=== PATIENT | female | born 1935 | race Caucasian/White ===

== ENCOUNTER 2019-10-06 09:58 | Emergency (ER) | payer OTHER ==
[~2019-10-06] VITALS: Ht 165.1 cm; Wt 68.0 kg
[2019-10-06 09:58] VITALS: BP_SYST 153
[2019-10-06] MEDS ORDERED: ONDANSETRON 4 MG ODT TAB PO ONE (10:30)
[2019-10-06 11:15] VITALS: BP_SYST 153
== END 2019-10-06 11:15 | disposition home or self-care (01) ==
LOC: SED 09:58
DX: R11.2 Nausea with vomiting, unspecified (principal); E11.9 Type 2 diabetes mellitus without complications
CPT/HCPCS: 81002; 99283; Q0162

== ENCOUNTER 2021-04-11 11:31 | Inpatient (IN) | payer OTHER, SELFPAY ==
[~2021-04-11] VITALS: Ht 165.1 cm; Wt 55.8 kg
[2021-04-11 11:37] VITALS: BP_SYST 166
--- NOTE | 2021-04-11 11:37 | NUR ---
Placed in room 1 . Placed on crayon grader, blood pressure machine and pulse oximeter. To gown for exam. Side rails up. Report given to GISELE DUFFY.
--- NOTE | 2021-04-11 11:44 | NUR ---
Pt c/o falling in the shower at home, did not black out. No obvious deformities or bruising noted. Pt states she only had coffee and crackers in the morning. Pt states no pain at this time. No other complaints at this time.
--- NOTE | 2021-04-11 12:13 | NUR ---
ER at bedside examining patient.
[2021-04-11] MEDS ORDERED: NACL 0.9% 1,000 ML IV ONE (12:30)
[2021-04-11 12:51] LABS: BASOPHILS % (AUTO) 0.3 % (0.0-2.0); EOSINOPHILS # (AUTO) 0.1 K/uL (0.0-0.4); EOSINOPHILS % (AUTO) 0.9 % (0.0-4.0); HEMATOCRIT 36.9 % (36-48); HEMOGLOBIN 12.1 g/dL (12.0-16.0); LYMPHOCYTES # (AUTO) 0.9 K/uL (1.0-5.5); LYMPHOCYTES % (AUTO) 11.2 % (20.5-51.5); MEAN CORPUSCULAR HEMOGLOBIN 29 pg (27-31); MEAN CORPUSCULAR HGB CONC 33 % (32-36); MEAN CORPUSCULAR VOLUME 88 fL (79.0-98.0); MONOCYTES # (AUTO) 0.5 K/uL (0.0-1.0); MONOCYTES % (AUTO) 6.2 % (1.7-9.3); NEUTROPHILS # (AUTO) 6.8 K/uL (1.8-7.7); NEUTROPHILS % (AUTO) 81.4 % (40.0-70.0); PLATELET COUNT (AUTO) 181 K/uL (130-430); RED CELL DISTRIBUTION WIDTH 14.2 % (9.0-15.0); WHITE BLOOD COUNT (AUTO) 8.3 K/uL (4.8-10.8)
[2021-04-11 12:52] LABS: ANION GAP 8 (5-15); CALCIUM 9.2 mg/dL (8.4-11.0); CHLORIDE 100 mmol/L (98-107); CREATININE 1.42 mg/dL (0.55-1.30); GLUCOSE 340 mg/dL (70-99); POTASSIUM 3.8 mmol/L (3.5-5.1); SODIUM SERUM 138 mmol/L (136-145); UREA NITROGEN, BLOOD 18 mg/dL (8-21)
[2021-04-11 12:54] LABS: PROTHROMBIN TIME 10.7 SECS (9.5-12.5)
[2021-04-11 13:02] LABS: ALANINE AMINOTRANSFERASE 18 U/L (12-78); ASPARTATE AMINOTRANSFERASE 14 U/L (10-37); TOTAL BILIRUBIN 0.4 mg/dL (0.0-1.0)
[2021-04-11] MEDS ORDERED: INSULIN REGULAR, HUMAN 10 UNITS/0.1 ML INJ IVP ONE (13:45)
--- NOTE | 2021-04-11 14:00 | NUR ---
Pt states no pain or distress at this time. Adminstered 6 units regular insulin witnessed by 2nd RN
--- NOTE | 2021-04-11 14:21 | NUR ---
[facility]
--- NOTE | 2021-04-11 14:33 | NUR ---
Pt returned to ER 1. Tolerated well.
[2021-04-11] MEDS ORDERED: DEXTROSE 50% JECT 50 ML DISP.SYRIN IVP PRN (15:30)
[2021-04-11] MEDS ORDERED: OMEP20CA15 PO (16:00)
--- NOTE | 2021-04-11 18:10 | NUR ---
Dr. Alf amraal at bedside.
--- NOTE | 2021-04-11 18:27 | NUR ---
Pt up in bed eating dinner. Administered clonidine 0.2 mg PO per MD order for elevated BP.
[2021-04-11] MEDS ORDERED: cloNIDine HCL 0.1 MG TABLET PO ONE (18:30)
[2021-04-11 18:58] LABS: BILIRUBIN,URINE NEGATIVE (NEGATIVE); BLOOD, URINE NEGATIVE (NEGATIVE); CLARITY/URINE CLOUDY (CLEAR); COLOR,URINE YELLOW (YELLOW); GLUCOSE,URINE 3+ (NEGATIVE); KETONES,URINE NEGATIVE (NEGATIVE); LEUKOCYTE ESTERASE ,URINE NEGATIVE (NEGATIVE); NITRITE, URINE NEGATIVE (NEGATIVE); PH,URINE 8.5 (5.0-8.0); PROTEIN URINE 3+ (NEGATIVE); UROBILINOGEN,URINE 0.2 (0.2-1.0)
[2021-04-11] MEDS ORDERED: hydrALAZINE HCL 25 MG TABLET PO ONE (19:00)
--- NOTE | 2021-04-11 19:10 | NUR ---
RECEIVED REPORT FROM DORIAN JAQUEZ
--- NOTE | 2021-04-11 19:17 | NUR ---
PHARMACY BROUGHT ORDER FOR BP MED, HYDRALAZINE. MEDICTED ORDERED
[2021-04-11] MEDS ORDERED: BIOT1CAP3 PO (19:20)
[2021-04-11] MEDS ORDERED: LIP40 PO (19:20)
[2021-04-11] MEDS ORDERED: MECO10005 PO (19:20)
[2021-04-11] MEDS ORDERED: LEVO75CA5 PO (19:20)
[2021-04-11] MEDS ORDERED: GLIM2TAB PO (19:20)
[2021-04-11] MEDS ORDERED: METO25TA6 PO (19:20)
[2021-04-11] MEDS ORDERED: APIX2.5T PO (19:20)
[2021-04-11] MEDS ORDERED: LOSA50TA28 PO (19:20)
[2021-04-11] MEDS ORDERED: ALEN70TA27 PO (19:20)
[2021-04-11] MEDS ORDERED: HYDR100T25 PO (19:20)
--- NOTE | 2021-04-11 19:21 | NUR ---
PT ATE VERY LITTLE FROM DINNER TRAY, 15-20 %
--- NOTE | 2021-04-11 19:51 | NUR ---
REPORT CALLED TO COTTON PROGRAM TECHNICIAN LARRY, PT WILL BE TRANSFERRED ON [place] WITH ED CHARGE AND TECH ON PORTABLE MONITOR
[2021-04-11 19:59] LABS: BACTERIA,URINE FEW /HPF (None Seen); MUCUS,URINE None Seen /LPF (None Seen); RBC,URINE 0-3 /HPF (0-3); TRIPLE PHOSPHATE CRYSTAL,UR 0-10 /HPF (None Seen); URINE AMORPHOUS PHOSPHATES 3+ /HPF (None Seen)
--- NOTE | 2021-04-11 19:59 | NUR ---
Patient will be admitted to care of DR COOMBS. Admitted to TELE unit. Will go to room 104B. Belongings list completed. Complete and up to date summary report printed. SBAR report to be given at bedside with opportunity for questions.
--- NOTE | 2021-04-11 20:08 | NUR ---
ADMIT NOTE Received pt from ER to the floor with a diagnosis of SYNCOPE. Admission process initiated. patient oriented to pain management, safety and call light-teach back done.
[2021-04-11 20:22] VITALS: BP_SYST 113
[2021-04-11] MEDS: APIXABAN 2.5 MG TABLET PO SCH (21:45)
--- NOTE | 2021-04-11 22:05 | NUR ---
CONSULTATION FOR DR. BRANDON FOR CONSULT OF SYNCOPE ORDER BY DR. MALVIN BRANDON HAS ALREADY SEEN PATIENT DR CHARTED AT 1810
--- NOTE | 2021-04-11 22:10 | NUR ---
Rounds/Pericare Pt incontinent of urine. Blanchable redness noted on buttocks. Pericare/skin care provided. Pt came in with L. heel dressing noted. Dry scab noted, no drainage, no odor. Cleansed with NS and applied optifoam dressing. Abelino heels floated on pillow. To monitor.
--- NOTE | 2021-04-12 00:06 | NUR ---
Rounds/Blood sugar check Pt awake, no s/s distress or discomfort. BS checked 193, 2 units Regular insulin administered per protocol. Call light within reach. Bed low, locked, siderails up x3, alarm on. To monitor.
[2021-04-12] MEDS: INSULIN REGULAR, HUMAN 100 UNITS/ML, 10 ML VIAL (humuLIN R) SUBCUT PRN ×2 (00:07→12:26)
[2021-04-12 00:27] VITALS: BP_SYST 156
--- NOTE | 2021-04-12 05:57 | NUR ---
EKG at bedside.
[2021-04-12] MEDS: LEVOTHYROXINE SODIUM 0.075 MG TABLET PO SCH (06:16)
--- NOTE | 2021-04-12 06:16 | NUR ---
Closing notes Pt AAOx3, no s/s distress or discomfort noted. BS checked 123. IV saline locked R. wrist 22G clear and patent. Call light within reach. Bed low, locked, siderails up x3, alarm on. To endorse to AM nurse.
[2021-04-12 06:39] LABS: BASOPHILS % (AUTO) 0.4 % (0.0-2.0); EOSINOPHILS # (AUTO) 0.1 K/uL (0.0-0.4); EOSINOPHILS % (AUTO) 2.2 % (0.0-4.0); HEMATOCRIT 34.5 % (36-48); HEMOGLOBIN 11.4 g/dL (12.0-16.0); LYMPHOCYTES # (AUTO) 1.1 K/uL (1.0-5.5); LYMPHOCYTES % (AUTO) 19.9 % (20.5-51.5); MEAN CORPUSCULAR HEMOGLOBIN 29 pg (27-31); MEAN CORPUSCULAR HGB CONC 33 % (32-36); MEAN CORPUSCULAR VOLUME 87 fL (79.0-98.0); MONOCYTES # (AUTO) 0.5 K/uL (0.0-1.0); MONOCYTES % (AUTO) 9.3 % (1.7-9.3); NEUTROPHILS # (AUTO) 3.7 K/uL (1.8-7.7); NEUTROPHILS % (AUTO) 68.2 % (40.0-70.0); PLATELET COUNT (AUTO) 175 K/uL (130-430); RED BLOOD CELL COUNT(AUTO) 3.96 MIL/uL (4.2-6.2); RED CELL DISTRIBUTION WIDTH 13.9 % (9.0-15.0); WHITE BLOOD COUNT (AUTO) 5.4 K/uL (4.8-10.8)
[2021-04-12 07:01] LABS: ALANINE AMINOTRANSFERASE 16 U/L (12-78); ALBUMIN 2.7 g/dL (3.4-4.8); ANION GAP 7 (5-15); ASPARTATE AMINOTRANSFERASE 13 U/L (10-37); CALCIUM 9.1 mg/dL (8.4-11.0); CHLORIDE 104 mmol/L (98-107); CREATININE 1.11 mg/dL (0.55-1.30); GLUCOSE 132 mg/dL (70-99); POTASSIUM 3.7 mmol/L (3.5-5.1); SODIUM SERUM 141 mmol/L (136-145); THYROID STIMULATING HORMONE 2.71 uIu/mL (0.36-3.74); TOTAL BILIRUBIN 0.5 mg/dL (0.0-1.0); UREA NITROGEN, BLOOD 19 mg/dL (8-21)
[2021-04-12 08:00] VITALS: BP_SYST 166
--- NOTE | 2021-04-12 08:00 | NUR ---
OPENING NOTE PATIENT AWAKE AND ORIENTED X4. DENIES ANY PAIN. NO SHORTNESS OF BREATH ON ROOM AIR. IV ACCESS ON RIGHT WRIST INTACT. FOAM DRESSING ON LEFT HEEL INTACT AND DRY. BLOOD PRESSURE ELEVATED 166/66 mmHg. WILL ADMINISTER SCHEDULED BLOOD PRESSURE MEDICATIONS. DISCUSSED PLAN OF CARE FOR THE DAY WITH PATIENT, VERBALIZED UNDERSTANDING. SAFETY CHECKS DONE, CALL LIGHT WITHIN REACH. ENCOURAGED PT TO CALL FOR HELP IF NEEDED.
[2021-04-12 08:09] LABS: CHOLESTEROL 150 mg/dL (<200); HDL CHOLESTEROL 46 mg/dL (>55); LDL CHOLESTEROL 87 mg/dL (<100); TRIGLYCERIDES 84 mg/dL (30-150)
[2021-04-12] MEDS: hydrALAZINE HCL 25 MG TABLET PO SCH ×2 (09:14→20:53)
[2021-04-12] MEDS: ATORVASTATIN 20 MG TABLET PO SCH (09:14)
[2021-04-12] MEDS: ASPIRIN 81 MG TAB.CHEW PO SCH (09:15)
[2021-04-12] MEDS: APIXABAN 2.5 MG TABLET PO SCH ×2 (09:15→20:54)
--- NOTE | 2021-04-12 09:34 | NUR ---
P.T. NOTES P.T. EVAL COMPLETED; REFER TO EVAL FOR DETAILS.
--- NOTE | 2021-04-12 11:42 | NUR ---
Nutrition Update Aleks Scale 15 noted. Pt admitted for syncope. Diet: cardiac BMI: 18.3 kg/m2 RD to follow per nutrition care standards.
[2021-04-12 12:53] VITALS: BP_SYST 153
--- NOTE | 2021-04-12 15:00 | NUR ---
WOUND CARE DRY SCAB ON LEFT HEEL INTACT. NO DRAINAGE. COVERED WITH FOAM DRESSING FOR PROTECTION. PT DENIED ANY PAIN. REPOSITIONED IN BED AND LEFT HEELS FLOATING. SAFETY CHECKS DONE AND CALL LIGHT WITHIN REACH.
[2021-04-12 16:30] VITALS: BP_SYST 143
--- NOTE | 2021-04-12 18:59 | NUR ---
CLOSING NOTE PT is in bed and resting. No shortness of breath on RA. PT denies pain. Blood glucose was stable (148) and PT did not require coverage before dinner. Safety checks were completed and call light was in reach. PT instructed to call if she needed assistance with anything.
--- NOTE | 2021-04-12 20:00 | NUR ---
INITIAL NOTES: PT IS ALERT AND ORIENTED , NO S/S OF ANY ACUTE DISTRESS NOTICED , ASSESSMENT COMPLETED ; NOTICED LEFT ARM AND LEGS STRENGTH ARE WEAKER THAN THE RIGHT SIDE , ALSO PT HAD THE HISTORY OF STROKE LAST YEAR .IV TO THE R WRIST , SL , NO S/S OF ANY INFILTRATION NOTICED .TELE MONITOR IS RUNNING SR , PTIS NOT DIAGNOSED WITH CVA OR TIA, WILL DO NIH SINCE PT HAS WEAKNESS TO LEFT SIDE . WILL CONTINUE TO MONITOR PT.
[2021-04-12 20:45] VITALS: BP_SYST 167
--- NOTE | 2021-04-12 20:55 | NUR ---
MEDICATION: DUE MEDS GIVEN PER ORDER , PT IS ABLE TO SWALLOW MEDICATION WELL, NO S/S OF ANY ASPIRATION NOTICED.
--- NOTE | 2021-04-12 22:00 | NUR ---
RN NOTES: PT STATED SHE DIDNT HAVE A BM TO DAY , PT STATED PRUNE JUICE HELPS HER USUALLY , CALLED AND REQUESTED HOUSE SUP FOR A PRUNE JUICE .
[2021-04-13 00:29] VITALS: BP_SYST 169
[2021-04-13] MEDS: INSULIN REGULAR, HUMAN 100 UNITS/ML, 10 ML VIAL (humuLIN R) SUBCUT PRN ×4 (01:09→16:45)
--- NOTE | 2021-04-13 01:15 | NUR ---
CALLED : CALLED AND TALKED WITH DR BRANDON , NOTIFIED THAT PTS BP IS LEFT ARM 161/76, 169/73, RIGHT ARM 178/77 , STATED" GIVE HYDRALAZINE 100 MG IN THE MORNING AT 9 AM , DON'T CHECK BP AGAIN , DON'T GIVE ANYTHING NOW " Addendum: 04/13/21 at 0119 by Jelani Lua RN CORRECTION- DON'T GIVE ANYTHING FOR BP NOW
--- NOTE | 2021-04-13 04:30 | NUR ---
RN NOTE: CLINT CARE GIVEN , PT IS SOAKED IN URINE AT THIS TIME ; PT CLEANED WITH SOAP AND WARM WATER , LINEN AND TOSHIA CHANGED ; PT TURNED AND REPOSITIONED;
[2021-04-13] MEDS: LEVOTHYROXINE SODIUM 0.075 MG TABLET PO SCH (06:12)
--- NOTE | 2021-04-13 06:30 | NUR ---
RN NOTES: PT IS SLEEPING , NOTICED PT IS CONFUSED , SPEAKING ONLY IN ISRAELI AT THIS TIME , LAST NIGHT SHE WAS TALKING TO [facility] , REORIENTED PT TO PLACE TIME AND SURROUNDING ; BS IS 236, LAST NIGHT IT WAS 186, PT RECEIVED 2 UNITS OF INSULIN AT THAT TIME AND PT DIDN'T EAT ANY THING AFTER THAT SINCE PTS BS IS 236 ,RECHECKED TO MAKE SURE ITS CORRECT ITS 238 NOW . INSULIN COVERAGE GIVEN PER ORDER .
--- NOTE | 2021-04-13 07:28 | NUR ---
CLOSING NOTES: REPORT GIVEN TO RN AT BEDSIDE , PT IS SLEEPING COMFORTABLY ; NOT IN ANY ACUTE DISTRESS; RESPIRATION IS EVEN AND NON LABORED .ALL NEED ATTENDED .
--- NOTE | 2021-04-13 08:18 | NUR ---
OPENING NOTES: PATIENT RESTING EATING BREAKFAST.HOB ELEVATED. BREATHING EVEN AND NON LABORED TO RA. BED LOCKED, ALARM ON AND IN LOWEST POSITION. FALL,SAFETY AND ASPIRATION PRECAUTION REINFORCED.CALL LIGHT WITHIN REACH.
[2021-04-13 08:21] VITALS: BP_SYST 154
[2021-04-13] MEDS: hydrALAZINE HCL 25 MG TABLET PO SCH ×2 (09:42→21:20)
[2021-04-13] MEDS: APIXABAN 2.5 MG TABLET PO SCH ×2 (09:42→21:23)
[2021-04-13] MEDS: LOSARTAN POTASSIUM 50 MG TABLET (COZAAR) PO SCH (09:42)
[2021-04-13] MEDS: ASPIRIN 81 MG TAB.CHEW PO SCH (09:43)
[2021-04-13] MEDS: ATORVASTATIN 20 MG TABLET PO SCH (09:45)
[2021-04-13 12:01] VITALS: BP_SYST 160
[2021-04-13] MEDS ORDERED: METOPROLOL TARTRATE 25 MG TABLET PO ONE (13:00)
--- NOTE | 2021-04-13 13:00 | NUR ---
RN NOTES/SPOKE TO DR. BRANDON: SPOKE TO DR. BRANDON REGARDING ELEVATED HR (140'S). PER DR. BRANDON MAY CONTINUE METOPROLOL 25 MG BID. PATIENT DENIES ANY CHEST DISCOMFORT. NO S/S OF ACUTE DISTRESS NOTED.
--- NOTE | 2021-04-13 13:30 | NUR ---
PHYSICAL THERAPY CO-SIGN The Physical Therapy Progress Notes documented by Lotus Notes Developer have been reviewed. Reviewed/Co-Signed by: Manasa Mendiola PT Documentation Done by:CHESTER RAMSEY PTA Addendum: 04/13/21 at 1330 by Manasa Mendiola PT Amended: Links added.
[2021-04-13 15:40] VITALS: BP_SYST 156
--- NOTE | 2021-04-13 16:33 | NUR ---
Dietitian Recommendations * Cardiac diet w/ Ensure Enlive TID, Quentin BID (supplements provide 1230 kcal/day, 65 gm protein/day) * Encourage increase PO intakes LP, RD Please refer to Nutrition Assessment for details. Addendum: 04/13/21 at [address] Amended: Links added.
--- NOTE | 2021-04-13 19:55 | NUR ---
CLOSING NOTES: PATIENT RESTING IN BED. NO S/S OF ACUTE DISTRESS NOTED. BED LOCKED, ALARM ON AND IN LOWEST POSITION. FALL,SAFETY AND ASPIRATION PRECAUTIONS PROVIDED. CALL LIGHT WITHIN REACH.
[2021-04-13] MEDS: METOPROLOL TARTRATE 25 MG TABLET PO SCH (21:21)
--- NOTE | 2021-04-13 21:23 | NUR ---
HIGH ALERT NOTE: Called back at [phone] identified within the medical roster to verify physician authenticity.
[2021-04-13] MEDS ORDERED: HYDROcodone/ACETAMIN 5-325 MG TAB (NORCO/ VICODIN) PO ONE (21:30)
[2021-04-14] MEDS: INSULIN REGULAR, HUMAN 100 UNITS/ML, 10 ML VIAL (humuLIN R) SUBCUT PRN ×3 (06:52→18:27)
[2021-04-14] MEDS: LEVOTHYROXINE SODIUM 0.075 MG TABLET PO SCH ×2 (06:55→07:00)
[2021-04-14 08:00] VITALS: BP_SYST 160
[2021-04-14] MEDS: ASPIRIN 81 MG TAB.CHEW PO SCH (08:59)
[2021-04-14] MEDS: hydrALAZINE HCL 25 MG TABLET PO SCH ×2 (09:00→21:30)
[2021-04-14] MEDS: METOPROLOL TARTRATE 25 MG TABLET PO SCH ×2 (09:00→21:29)
[2021-04-14] MEDS: APIXABAN 2.5 MG TABLET PO SCH ×2 (09:01→21:31)
[2021-04-14] MEDS: ATORVASTATIN 20 MG TABLET PO SCH (09:01)
[2021-04-14] MEDS: LOSARTAN POTASSIUM 50 MG TABLET (COZAAR) PO SCH (09:02)
--- NOTE | 2021-04-14 10:49 | NUR ---
DC planning: US Vo said he faxed HH/PT orders to HCP to Amy JAQUEZ
[2021-04-14] MEDS ORDERED: cefTRIAXone 1 GM in D5W 50 ML IV SCH (11:00)
[2021-04-14 12:00] VITALS: BP_SYST 152
[2021-04-14] MEDS ORDERED: CIPR500T5 PO (13:30)
[2021-04-14] MEDS ORDERED: LOSA50TA28 PO (13:30)
[2021-04-14] MEDS ORDERED: LIP20 PO (13:30)
[2021-04-14] MEDS ORDERED: HYDR100T25 PO (13:30)
[2021-04-14] MEDS ORDERED: ASA81 PO (13:30)
[2021-04-14 16:00] VITALS: BP_SYST 148
--- NOTE | 2021-04-14 17:00 | NUR ---
FAXED ORDER FOR HOME HEALTH AND H&P TO JEFFERY CORREA HCP FAX NUMBER [phone] SHE IS ARRANGING HOME HEALTH AGENCY TO BE BE DETERMINED PATIENT IS OK TO BE DISCHARGED
--- NOTE | 2021-04-14 19:35 | NUR ---
ROUNDS PATIENT RESTING COMFORTABLY IN BED, VITALS STABLE, DENIES PAIN AT THIS TIME. ASSESSMENT DONE AND DOCUEMNTED. SEE FLOWSHEET. PATIENT TO BE DISCHARGED HOME TOMORROW MORNING PER FAMILY REQUEST SINCE THEY ARE NOT READY MD TONYA AWARE PER A.M. RN. NEEDS ATTENDED TO. CALL LIGHT PLACED WITHIN REACH.
[2021-04-14 20:00] VITALS: BP_SYST 145
[2021-04-15] VITALS: BP_SYST 134
[2021-04-15] MEDS: LEVOTHYROXINE SODIUM 0.075 MG TABLET PO SCH (06:07)
[2021-04-15] MEDS: INSULIN REGULAR, HUMAN 100 UNITS/ML, 10 ML VIAL (humuLIN R) SUBCUT PRN (06:08)
--- NOTE | 2021-04-15 06:24 | NUR ---
CLOSING NOTES PATIENT AWAKE, ACCU CHECK DONE WITH BLOOD SUGAR OF 195. 2 UNITS REGULAR INSULIN GIVEN SQ PER SLIDING SCALE. ALL NEEDS ATTENDED TO. CALL LIGHT PLACED WITHIN REACH.
--- NOTE | 2021-04-15 07:30 | NUR ---
OPENING NOTE Received shift report from overnight houseperson RN. Patient currently resting in bed and respirations remain even and non-labored on room air. No complaints of pain and no signs of distress. IV is patent and saline-locked. Bed locked in lowest position and call light is within reach. Will continue to monitor.
[2021-04-15 07:32] LABS: BASOPHILS % (AUTO) 0.4 % (0.0-2.0); EOSINOPHILS # (AUTO) 0.1 K/uL (0.0-0.4); HEMATOCRIT 37.7 % (36-48); HEMOGLOBIN 12.6 g/dL (12.0-16.0); LYMPHOCYTES # (AUTO) 1.4 K/uL (1.0-5.5); LYMPHOCYTES % (AUTO) 19.9 % (20.5-51.5); MEAN CORPUSCULAR HEMOGLOBIN 29 pg (27-31); MEAN CORPUSCULAR HGB CONC 33 % (32-36); MEAN CORPUSCULAR VOLUME 87 fL (79.0-98.0); MONOCYTES # (AUTO) 0.7 K/uL (0.0-1.0); MONOCYTES % (AUTO) 9.9 % (1.7-9.3); NEUTROPHILS # (AUTO) 4.8 K/uL (1.8-7.7); NEUTROPHILS % (AUTO) 67.8 % (40.0-70.0); PLATELET COUNT (AUTO) 201 K/uL (130-430); RED BLOOD CELL COUNT(AUTO) 4.36 MIL/uL (4.2-6.2); RED CELL DISTRIBUTION WIDTH 13.9 % (9.0-15.0); WHITE BLOOD COUNT (AUTO) 7.1 K/uL (4.8-10.8)
[2021-04-15 07:42] LABS: ANION GAP 7 (5-15); CALCIUM 9.2 mg/dL (8.4-11.0); CHLORIDE 98 mmol/L (98-107); CREATININE 1.53 mg/dL (0.55-1.30); GLUCOSE 207 mg/dL (70-99); POTASSIUM 4.4 mmol/L (3.5-5.1); SODIUM SERUM 134 mmol/L (136-145); UREA NITROGEN, BLOOD 31 mg/dL (8-21)
[2021-04-15 08:00] VITALS: BP_SYST 136
[2021-04-15 08:35] LABS: C-REACTIVE PROTEIN QUANT < 0.2 mg/dL (0-0.5)
[2021-04-15] MEDS: hydrALAZINE HCL 25 MG TABLET PO SCH (08:55)
[2021-04-15] MEDS: METOPROLOL TARTRATE 25 MG TABLET PO SCH (08:55)
[2021-04-15] MEDS: ASPIRIN 81 MG TAB.CHEW PO SCH (08:55)
[2021-04-15] MEDS: APIXABAN 2.5 MG TABLET PO SCH (08:56)
[2021-04-15] MEDS: LOSARTAN POTASSIUM 50 MG TABLET (COZAAR) PO SCH (08:56)
[2021-04-15] MEDS: ATORVASTATIN 20 MG TABLET PO SCH (08:57)
[2021-04-15 10:05] LABS: ERYTHROCYTE SEDIMENTATION RATE 38 MM/HR (0-20)
[2021-04-15 10:38] VITALS: BP_SYST 136
--- NOTE | 2021-04-15 11:20 | NUR ---
DISCHARGED/C Patient Patient given medication reconciliation form and D/C instructions. Exit Care provided. Patient verbalized understanding. MD discussed with patient the results and treatment provided. Ambulatory with steady gait for discharge to home. Patient in stable condition, ID band removed. IV catheter removed, intact and dressing applied, no active bleeding. Rx of ciprofloxacin, aspirin, losartan, lipitor, apresoline given. Patient educated on pain management. All belongings sent with patient.
--- NOTE | 2021-04-16 07:41 | NUR ---
PHYSICAL THERAPY CO-SIGN The Physical Therapy Progress Notes documented by Pipe Fitter Supervisor have been reviewed. Reviewed/Co-Signed by: Lionel Downing Documentation Done by: CHESTER RAMSEY PTA Addendum: 04/16/21 at 0743 by Lionel Downing PT Amended: Links added.
== END 2021-04-15 11:20 | disposition home health service (06) | DRG 872 ==
LOC: SED 11:31 → STU 15:20 → OBSVTOIN 15:20 → STU 18:00 → SMU 04-14 16:21
PROVIDERS: ADMIT Internal Medicine Hospice and Palliative Medicine; ATTEND Internal Medicine Hospice and Palliative Medicine
DX: A41.9 Sepsis, unspecified organism (principal); E87.1 Hypo-osmolality and hyponatremia; N17.9 Acute kidney failure, unspecified; N39.0 Urinary tract infection, site not specified; B96.1 Klebsiella pneumoniae [K. pneumoniae] as the cause of diseases classified elsewhere; E03.9 Hypothyroidism, unspecified; E11.22 Type 2 diabetes mellitus with diabetic chronic kidney disease; E11.65 Type 2 diabetes mellitus with hyperglycemia; M54.50 Low back pain, unspecified; Z20.822 Contact with and (suspected) exposure to COVID-19; E78.5 Hyperlipidemia, unspecified; I48.91 Unspecified atrial fibrillation; F03.90 Unspecified dementia, unspecified severity, without behavioral disturbance, psychotic disturbance, mood disturbance, and anxiety; G89.29 Other chronic pain; I12.9 Hypertensive chronic kidney disease with stage 1 through stage 4 chronic kidney disease, or unspecified chronic kidney disease; N18.2 Chronic kidney disease, stage 2 (mild); Z79.01 Long term (current) use of anticoagulants; Z86.73 Personal history of transient ischemic attack (TIA), and cerebral infarction without residual deficits; Z90.710 Acquired absence of both cervix and uterus; Z79.899 Other long term (current) drug therapy; Z90.49 Acquired absence of other specified parts of digestive tract
CPT/HCPCS: 36415; 70450-TC; 71045; 72148; 76376; 80048; 80053; 80061; 81000; 82962; 83735; 83880; 84443; 84484; 85025; 85610-TC; 85651-TC; 86140; 87086; 93005; 93306; 93880; 97110-GP; 97112-GP; 97116-GP; 97163-GP; 97530-GP; G0378; J0696; J1815; J7060

== ENCOUNTER 2021-12-14 22:04 | Inpatient (IN) | payer OTHER ==
[~2021-12-14] VITALS: Ht 157.5 cm; Wt 60.8 kg
[~2021-12-14 22:04] MED LIST: ALEN70TA27 PO; APIX2.5T PO; ASA81 PO; BIOT1CAP3 PO; CIPR500T5 PO; GLIM2TAB PO; HYDR100T25 PO; LEVO75CA5 PO; LIP20 PO; LOSA50TA28 PO; MECO10005 PO; METO25TA6 PO
[2021-12-14 22:20] VITALS: BP_SYST 215
[2021-12-14] MEDS ORDERED: ASPIRIN 81 MG TAB.CHEW PO ONE (22:30)
[2021-12-14 23:23] LABS: BASOPHILS # (AUTO) 0.1 K/uL (0.0-0.2); BASOPHILS % (AUTO) 0.6 % (0.0-2.0); EOSINOPHILS # (AUTO) 0.1 K/uL (0.0-0.4); EOSINOPHILS % (AUTO) 1.2 % (0.0-4.0); LYMPHOCYTES % (AUTO) 10.7 % (20.5-51.5); MEAN CORPUSCULAR HEMOGLOBIN 29 pg (27-31); MEAN CORPUSCULAR HGB CONC 33 % (32-36); MEAN CORPUSCULAR VOLUME 87 fL (79.0-98.0); MONOCYTES # (AUTO) 0.7 K/uL (0.0-1.0); MONOCYTES % (AUTO) 7.1 % (1.7-9.3); NEUTROPHILS # (AUTO) 7.4 K/uL (1.8-7.7); NEUTROPHILS % (AUTO) 80.4 % (40.0-70.0); PLATELET COUNT (AUTO) 187 K/uL (130-430); RED BLOOD CELL COUNT(AUTO) 4.13 MIL/uL (4.2-6.2); RED CELL DISTRIBUTION WIDTH 14.1 % (9.0-15.0); WHITE BLOOD COUNT (AUTO) 9.2 K/uL (4.8-10.8)
[2021-12-14 23:42] LABS: ANION GAP 6 (5-15); CALCIUM 8.7 mg/dL (8.4-11.0); CHLORIDE 100 mmol/L (98-107); CREATININE 1.71 mg/dL (0.55-1.30); GLUCOSE 331 mg/dL (70-99); SODIUM SERUM 134 mmol/L (136-145); UREA NITROGEN, BLOOD 19 mg/dL (8-21)
[2021-12-14 23:53] LABS: ALANINE AMINOTRANSFERASE 17 U/L (12-78); ALBUMIN 2.8 g/dL (3.4-4.8); ASPARTATE AMINOTRANSFERASE 20 U/L (10-37); TOTAL BILIRUBIN 0.2 mg/dL (0.0-1.0)
[2021-12-15] VITALS (7 sets, daily range): BP systolic 132–188
[2021-12-15] MEDS ORDERED: hydrALAZINE HCL 20 MG/ML VIAL ONE (01:12)
[2021-12-15] MEDS ORDERED: hydrALAZINE HCL 20 MG/ML VIAL IVP ONE ×2 (01:15→04:30)
[2021-12-15 03:00] LABS: BILIRUBIN,URINE NEGATIVE (NEGATIVE); BLOOD, URINE 1+ (NEGATIVE); CLARITY/URINE CLEAR (CLEAR); COLOR,URINE YELLOW (YELLOW); GLUCOSE,URINE 2+ (NEGATIVE); KETONES,URINE NEGATIVE (NEGATIVE); LEUKOCYTE ESTERASE ,URINE 1+ (NEGATIVE); NITRITE, URINE NEGATIVE (NEGATIVE); PROTEIN URINE 3+ (NEGATIVE); UROBILINOGEN,URINE 0.2 (0.2-1.0)
[2021-12-15 03:29] LABS: BACTERIA,URINE MODERATE /HPF (None Seen); MUCUS,URINE 1+ /LPF (None Seen)
[2021-12-15] MEDS ORDERED: NACL 0.9% 1,000 ML IV ONE (03:45)
[2021-12-15] MEDS ORDERED: cefTRIAXone 1 GM in D5W 50 ML IV ONE (03:45)
[2021-12-15] MEDS ORDERED: MORPHINE 4 MG INJ. 4 MG/ML VIAL IVP ONE ×2 (03:45→06:00)
[2021-12-15] MEDS ORDERED: PROCHLORPERAZINE EDISYLATE 10 MG/2 ML VIAL IVP ONE (03:45)
[2021-12-15] MEDS ORDERED: cefTRIAXone 1 GM VIAL ONE (03:58)
[2021-12-15] MEDS ORDERED: HYDR100T25 PO (03:59)
[2021-12-15] MEDS ORDERED: DOCU-144 PO (04:01)
[2021-12-15] MEDS ORDERED: LOSA50TA3 PO (04:02)
[2021-12-15] MEDS ORDERED: GLIM2TAB PO (04:03)
[2021-12-15] MEDS ORDERED: LORA-258 PO (04:06)
[2021-12-15] MEDS ORDERED: CHOL100038 PO (04:08)
[2021-12-15] MEDS ORDERED: LOSARTAN POTASSIUM 50 MG TABLET (COZAAR) PO ONE ×2 (06:00→10:45)
[2021-12-15] MEDS ORDERED: METOPROLOL TARTRATE 25 MG TABLET PO ONE ×2 (06:00→10:45)
[2021-12-15] MEDS ORDERED: PROCHLORPERAZINE EDISYLATE 10 MG/2 ML VIAL IVP PRN (06:00)
[2021-12-15] MEDS ORDERED: LOSARTAN POTASSIUM 50 MG TABLET (COZAAR) ONE (06:24)
[2021-12-15] MEDS ORDERED: ONDANSETRON HCL 4 MG/2 ML VIAL IVP PRN (10:15)
[2021-12-15] MEDS ORDERED: ACETAMINOPHEN 325 MG TABLET PO PRN (10:15)
[2021-12-15] MEDS ORDERED: NALOXONE HCL 0.4 MG/ML AMP (NARCAN) IVP PRN ×2 (10:15)
[2021-12-15] MEDS ORDERED: LORazepam 1 MG TABLET PO PRN (10:15)
[2021-12-15] MEDS ORDERED: DOCUSATE SODIUM 100 MG CAPSULE PO PRN (10:15)
[2021-12-15] MEDS ORDERED: GLIMEPIRIDE 2 MG TABLET PO ONE (10:45)
[2021-12-15] MEDS: cefTRIAXone 1 GM in D5W 50 ML IV SCH (10:57)
[2021-12-15] MEDS: INSULIN REGULAR, HUMAN 100 UNITS/ML, 10 ML VIAL (humuLIN R) SUBCUT PRN ×3 (11:10→21:42)
[2021-12-15 11:13] LABS: BASOPHILS % (AUTO) 0.3 % (0.0-2.0); EOSINOPHILS % (AUTO) 0.2 % (0.0-4.0); HEMATOCRIT 33.9 % (36-48); HEMOGLOBIN 11.4 g/dL (12.0-16.0); LYMPHOCYTES # (AUTO) 0.9 K/uL (1.0-5.5); LYMPHOCYTES % (AUTO) 11.6 % (20.5-51.5); MEAN CORPUSCULAR HEMOGLOBIN 29 pg (27-31); MEAN CORPUSCULAR HGB CONC 34 % (32-36); MEAN CORPUSCULAR VOLUME 87 fL (79.0-98.0); MONOCYTES # (AUTO) 0.6 K/uL (0.0-1.0); MONOCYTES % (AUTO) 7.2 % (1.7-9.3); NEUTROPHILS # (AUTO) 6.4 K/uL (1.8-7.7); NEUTROPHILS % (AUTO) 80.7 % (40.0-70.0); PLATELET COUNT (AUTO) 177 K/uL (130-430); RED BLOOD CELL COUNT(AUTO) 3.89 MIL/uL (4.2-6.2); RED CELL DISTRIBUTION WIDTH 14.2 % (9.0-15.0); WHITE BLOOD COUNT (AUTO) 7.9 K/uL (4.8-10.8)
[2021-12-15 11:29] LABS: ANION GAP 5 (5-15); CHLORIDE 101 mmol/L (98-107); CREATININE 1.53 mg/dL (0.55-1.30); GLUCOSE 385 mg/dL (70-99); POTASSIUM 4.7 mmol/L (3.5-5.1); SODIUM SERUM 133 mmol/L (136-145); UREA NITROGEN, BLOOD 19 mg/dL (8-21)
[2021-12-15] MEDS ORDERED: NORMAL SALINE 5 ML DISP.SYRIN IVF SCH (14:00)
[2021-12-15] MEDS: hydrALAZINE HCL 25 MG TABLET PO SCH (15:01)
[2021-12-15] MEDS: NORMAL SALINE 5 ML DISP.SYRIN IVF SCH ×2 (15:01→21:33)
[2021-12-15] MEDS: HYDROcodone/ACETAMIN 10-325 MG TAB PO PRN (15:03)
[2021-12-15] MEDS: HYDROcodone/ACETAMIN 5-325 MG TAB (NORCO/ VICODIN) PO PRN (21:32)
[2021-12-15] MEDS: LOSARTAN POTASSIUM 50 MG TABLET (COZAAR) PO SCH (21:32)
[2021-12-15] MEDS: METOPROLOL TARTRATE 25 MG TABLET PO SCH (21:33)
[2021-12-15] MEDS: APIXABAN 2.5 MG TABLET PO SCH (21:42)
[2021-12-16] MEDS: hydrALAZINE HCL 25 MG TABLET PO SCH ×4 (00:46→14:27)
[2021-12-16] MEDS: HYDROcodone/ACETAMIN 10-325 MG TAB PO PRN ×2 (00:46→05:02)
[2021-12-16 01:30] VITALS: BP_SYST 170
[2021-12-16] MEDS: NORMAL SALINE 5 ML DISP.SYRIN IVF SCH ×3 (06:20→20:46)
[2021-12-16 06:54] LABS: BASOPHILS % (AUTO) 0.4 % (0.0-2.0); EOSINOPHILS # (AUTO) 0.2 K/uL (0.0-0.4); EOSINOPHILS % (AUTO) 2.1 % (0.0-4.0); HEMATOCRIT 30.5 % (36-48); HEMOGLOBIN 10.6 g/dL (12.0-16.0); LYMPHOCYTES # (AUTO) 1.4 K/uL (1.0-5.5); LYMPHOCYTES % (AUTO) 19.3 % (20.5-51.5); MEAN CORPUSCULAR HEMOGLOBIN 30 pg (27-31); MEAN CORPUSCULAR HGB CONC 35 % (32-36); MEAN CORPUSCULAR VOLUME 86 fL (79.0-98.0); MONOCYTES # (AUTO) 0.7 K/uL (0.0-1.0); MONOCYTES % (AUTO) 10.3 % (1.7-9.3); NEUTROPHILS # (AUTO) 4.8 K/uL (1.8-7.7); NEUTROPHILS % (AUTO) 67.9 % (40.0-70.0); PLATELET COUNT (AUTO) 168 K/uL (130-430); RED BLOOD CELL COUNT(AUTO) 3.56 MIL/uL (4.2-6.2); RED CELL DISTRIBUTION WIDTH 13.9 % (9.0-15.0)
[2021-12-16 07:00] VITALS: BP_SYST 130
[2021-12-16 08:00] VITALS: BP_SYST 152
[2021-12-16 08:17] LABS: ANION GAP 5 (5-15); CALCIUM 8.1 mg/dL (8.4-11.0); CHLORIDE 102 mmol/L (98-107); CREATININE 1.27 mg/dL (0.55-1.30); GLUCOSE 140 mg/dL (70-99); POTASSIUM 4.2 mmol/L (3.5-5.1); SODIUM SERUM 136 mmol/L (136-145); UREA NITROGEN, BLOOD 19 mg/dL (8-21)
[2021-12-16] MEDS ORDERED: NON-FORMULARY MEDICATION (Biotin 1 CAP) PO SCH (09:00)
[2021-12-16] MEDS: LOSARTAN POTASSIUM 50 MG TABLET (COZAAR) PO SCH ×2 (10:16→20:36)
[2021-12-16] MEDS: APIXABAN 2.5 MG TABLET PO SCH ×2 (10:17→20:45)
[2021-12-16] MEDS: CHOLECALCIFEROL (VITAMIN D3) 2,000 UNIT TABLET PO SCH (10:19)
[2021-12-16] MEDS: METOPROLOL TARTRATE 25 MG TABLET PO SCH ×2 (10:19→20:36)
[2021-12-16] MEDS: GLIMEPIRIDE 2 MG TABLET PO SCH (10:20)
[2021-12-16 12:00] VITALS: BP_SYST 158
[2021-12-16] MEDS: INSULIN REGULAR, HUMAN 100 UNITS/ML, 10 ML VIAL (humuLIN R) SUBCUT PRN ×3 (12:18→20:45)
[2021-12-16] MEDS: cefTRIAXone 1 GM in D5W 50 ML IV SCH (12:20)
[2021-12-16 13:26] LABS: CHOLESTEROL 141 mg/dL (<200); HDL CHOLESTEROL 39 mg/dL (>55); LDL CHOLESTEROL 78 mg/dL (<100); TRIGLYCERIDES 126 mg/dL (30-150)
[2021-12-16 16:00] VITALS: BP_SYST 190
[2021-12-16] MEDS ORDERED: cloNIDine HCL 0.1 MG TABLET PO PRN (17:30)
[2021-12-16 20:00] VITALS: BP_SYST 136
[2021-12-16] MEDS: HYDROcodone/ACETAMIN 5-325 MG TAB (NORCO/ VICODIN) PO PRN (20:35)
[2021-12-17] MEDS: HYDROcodone/ACETAMIN 5-325 MG TAB (NORCO/ VICODIN) PO PRN ×2 (01:16→21:05)
[2021-12-17 01:24] VITALS: BP_SYST 137
[2021-12-17] MEDS: NORMAL SALINE 5 ML DISP.SYRIN IVF SCH ×3 (06:00→20:22)
[2021-12-17] MEDS: hydrALAZINE HCL 25 MG TABLET PO SCH ×3 (06:00→20:19)
[2021-12-17 06:31] LABS: BASOPHILS % (AUTO) 0.5 % (0.0-2.0); EOSINOPHILS # (AUTO) 0.2 K/uL (0.0-0.4); EOSINOPHILS % (AUTO) 2.4 % (0.0-4.0); HEMATOCRIT 29.7 % (36-48); HEMOGLOBIN 10.4 g/dL (12.0-16.0); LYMPHOCYTES # (AUTO) 1.4 K/uL (1.0-5.5); LYMPHOCYTES % (AUTO) 20.5 % (20.5-51.5); MEAN CORPUSCULAR HEMOGLOBIN 30 pg (27-31); MEAN CORPUSCULAR HGB CONC 35 % (32-36); MEAN CORPUSCULAR VOLUME 86 fL (79.0-98.0); MONOCYTES # (AUTO) 0.7 K/uL (0.0-1.0); MONOCYTES % (AUTO) 11.3 % (1.7-9.3); NEUTROPHILS # (AUTO) 4.3 K/uL (1.8-7.7); NEUTROPHILS % (AUTO) 65.3 % (40.0-70.0); PLATELET COUNT (AUTO) 177 K/uL (130-430); RED BLOOD CELL COUNT(AUTO) 3.47 MIL/uL (4.2-6.2); RED CELL DISTRIBUTION WIDTH 14.2 % (9.0-15.0); WHITE BLOOD COUNT (AUTO) 6.6 K/uL (4.8-10.8)
[2021-12-17 08:00] VITALS: BP_SYST 150; BP_SYST 160
[2021-12-17] MEDS: HYDROcodone/ACETAMIN 10-325 MG TAB PO PRN (08:04)
[2021-12-17 08:10] LABS: ERYTHROCYTE SEDIMENTATION RATE 46 MM/HR (0-20)
[2021-12-17 08:24] LABS: ALANINE AMINOTRANSFERASE 10 U/L (12-78); ANION GAP 4 (5-15); ASPARTATE AMINOTRANSFERASE 14 U/L (10-37); C-REACTIVE PROTEIN QUANT 1.3 mg/dL (0-0.5); CHLORIDE 101 mmol/L (98-107); CREATININE 1.57 mg/dL (0.55-1.30); GLUCOSE 112 mg/dL (70-99); POTASSIUM 4.5 mmol/L (3.5-5.1); SODIUM SERUM 135 mmol/L (136-145); TOTAL BILIRUBIN 0.2 mg/dL (0.0-1.0); UREA NITROGEN, BLOOD 23 mg/dL (8-21)
[2021-12-17] MEDS ORDERED: CIPROFLOXACIN HCL 500 MG TABLET PO ONE (11:00)
[2021-12-17] MEDS: GLIMEPIRIDE 2 MG TABLET PO SCH (11:17)
[2021-12-17] MEDS: LOSARTAN POTASSIUM 50 MG TABLET (COZAAR) PO SCH ×2 (11:17→20:20)
[2021-12-17] MEDS: CHOLECALCIFEROL (VITAMIN D3) 2,000 UNIT TABLET PO SCH (11:18)
[2021-12-17] MEDS: METOPROLOL TARTRATE 25 MG TABLET PO SCH ×2 (11:18→20:20)
[2021-12-17] MEDS: APIXABAN 2.5 MG TABLET PO SCH ×2 (11:19→20:22)
[2021-12-17] MEDS: INSULIN REGULAR, HUMAN 100 UNITS/ML, 10 ML VIAL (humuLIN R) SUBCUT PRN ×3 (11:28→21:21)
[2021-12-17 14:27] VITALS: BP_SYST 159
[2021-12-17 16:37] VITALS: BP_SYST 157
[2021-12-17 20:00] VITALS: BP_SYST 187
[2021-12-17] MEDS: MEROPENEM 500 MG in NS 50 ML IV SCH (20:18)
[2021-12-18] VITALS (7 sets, daily range): BP systolic 128–191
[2021-12-18] MEDS: hydrALAZINE HCL 25 MG TABLET PO SCH ×3 (04:54→21:38)
[2021-12-18] MEDS: NORMAL SALINE 5 ML DISP.SYRIN IVF SCH ×3 (04:54→21:57)
[2021-12-18] MEDS: HYDROcodone/ACETAMIN 10-325 MG TAB PO PRN ×2 (04:55→21:37)
[2021-12-18] MEDS ORDERED: CIPROFLOXACIN HCL 500 MG TABLET PO SCH (09:00)
[2021-12-18] MEDS: GLIMEPIRIDE 2 MG TABLET PO SCH (09:02)
[2021-12-18] MEDS: CHOLECALCIFEROL (VITAMIN D3) 2,000 UNIT TABLET PO SCH (09:02)
[2021-12-18] MEDS: METOPROLOL TARTRATE 25 MG TABLET PO SCH ×2 (09:02→21:39)
[2021-12-18] MEDS: APIXABAN 2.5 MG TABLET PO SCH ×2 (09:03→21:40)
[2021-12-18] MEDS: LOSARTAN POTASSIUM 50 MG TABLET (COZAAR) PO SCH ×2 (09:03→21:37)
[2021-12-18] MEDS: MEROPENEM 500 MG in NS 50 ML IV SCH ×2 (09:04→21:57)
[2021-12-18] MEDS ORDERED: MERO500P IV (10:12)
[2021-12-18] MEDS: INSULIN REGULAR, HUMAN 100 UNITS/ML, 10 ML VIAL (humuLIN R) SUBCUT PRN ×2 (11:41→17:27)
[2021-12-19] VITALS: BP_SYST 157; BP_SYST 158
[2021-12-19] MEDS: hydrALAZINE HCL 25 MG TABLET PO SCH ×3 (05:17→21:27)
[2021-12-19] MEDS: NORMAL SALINE 5 ML DISP.SYRIN IVF SCH ×3 (05:23→21:28)
[2021-12-19] MEDS: APIXABAN 2.5 MG TABLET PO SCH ×2 (09:10→21:34)
[2021-12-19] MEDS: HYDROcodone/ACETAMIN 5-325 MG TAB (NORCO/ VICODIN) PO PRN (09:11)
[2021-12-19] MEDS: LOSARTAN POTASSIUM 50 MG TABLET (COZAAR) PO SCH ×2 (09:11→21:28)
[2021-12-19] MEDS: GLIMEPIRIDE 2 MG TABLET PO SCH (09:12)
[2021-12-19] MEDS: CHOLECALCIFEROL (VITAMIN D3) 2,000 UNIT TABLET PO SCH (09:13)
[2021-12-19] MEDS: MEROPENEM 500 MG in NS 50 ML IV SCH ×2 (09:15→21:25)
[2021-12-19] MEDS: METOPROLOL TARTRATE 25 MG TABLET PO SCH ×2 (09:15→21:29)
[2021-12-19] MEDS: INSULIN REGULAR, HUMAN 100 UNITS/ML, 10 ML VIAL (humuLIN R) SUBCUT PRN ×3 (11:36→21:35)
[2021-12-19 12:42] VITALS: BP_SYST 122
[2021-12-19 16:12] VITALS: BP_SYST 148
[2021-12-19 21:00] VITALS: BP_SYST 137
[2021-12-20 02:01] VITALS: BP_SYST 160
[2021-12-20] MEDS: hydrALAZINE HCL 25 MG TABLET PO SCH (06:37)
[2021-12-20] MEDS: NORMAL SALINE 5 ML DISP.SYRIN IVF SCH (06:38)
[2021-12-20] MEDS: INSULIN REGULAR, HUMAN 100 UNITS/ML, 10 ML VIAL (humuLIN R) SUBCUT PRN (06:39)
[2021-12-20] MEDS: HYDROcodone/ACETAMIN 10-325 MG TAB PO PRN (07:54)
[2021-12-20 08:00] VITALS: BP_SYST 139
[2021-12-20] MEDS: MEROPENEM 500 MG in NS 50 ML IV SCH (08:45)
[2021-12-20] MEDS: GLIMEPIRIDE 2 MG TABLET PO SCH (08:46)
[2021-12-20] MEDS: CHOLECALCIFEROL (VITAMIN D3) 2,000 UNIT TABLET PO SCH (08:46)
[2021-12-20] MEDS: METOPROLOL TARTRATE 25 MG TABLET PO SCH (08:46)
[2021-12-20] MEDS: LOSARTAN POTASSIUM 50 MG TABLET (COZAAR) PO SCH (08:47)
[2021-12-20] MEDS: APIXABAN 2.5 MG TABLET PO SCH (08:47)
[2021-12-20 10:21] VITALS: BP_SYST 132
[2021-12-20] MEDS ORDERED: SULFAMETHOXAZOLE/TRIMETHOPR DS 1 TABLET PO SCH (21:00)
== END 2021-12-20 14:10 | disposition home health service (06) | DRG 73 ==
LOC: SED 22:04 → STU 12-15 04:08
PROVIDERS: ADMIT Preventive Medicine Preventive Medicine/Occupational Environmental Medicine; ATTEND Specialist
PROC: 4A10X4Z Monitoring of Central Nervous Electrical Activity, External Approach (ICD-10-PCS; principal; 2021-12-16)
DX: G90.8 Other disorders of autonomic nervous system (principal); N17.0 Acute kidney failure with tubular necrosis; S42.211A Unspecified displaced fracture of surgical neck of right humerus, initial encounter for closed fracture; N39.0 Urinary tract infection, site not specified; S42.212A Unspecified displaced fracture of surgical neck of left humerus, initial encounter for closed fracture; S52.502A Unspecified fracture of the lower end of left radius, initial encounter for closed fracture; E87.1 Hypo-osmolality and hyponatremia; Z16.12 Extended spectrum beta lactamase (ESBL) resistance; E44.0 Moderate protein-calorie malnutrition; R65.10 Systemic inflammatory response syndrome (SIRS) of non-infectious origin without acute organ dysfunction; I10 Essential (primary) hypertension; F03.90 Unspecified dementia, unspecified severity, without behavioral disturbance, psychotic disturbance, mood disturbance, and anxiety; E88.09 Other disorders of plasma-protein metabolism, not elsewhere classified; K59.00 Constipation, unspecified; F43.20 Adjustment disorder, unspecified; E11.65 Type 2 diabetes mellitus with hyperglycemia; W06.XXXA Fall from bed, initial encounter; B96.20 Unspecified Escherichia coli [E. coli] as the cause of diseases classified elsewhere; E55.9 Vitamin D deficiency, unspecified; Z20.822 Contact with and (suspected) exposure to COVID-19; Z79.899 Other long term (current) drug therapy; Z86.73 Personal history of transient ischemic attack (TIA), and cerebral infarction without residual deficits; Z79.01 Long term (current) use of anticoagulants; Y93.89 Activity, other specified; Y92.89 Other specified places as the place of occurrence of the external cause; Y99.8 Other external cause status; Z79.2 Long term (current) use of antibiotics
CPT/HCPCS: 36415; 70450-TC; 71045; 73030; 76376; 80048; 80053; 80061; 81000; 82962; 83880; 84484; 85025; 85651-TC; 86140; 87086; 93005; 93306; 93880; 95816; 96361; 96365; 96375; 97110-GP; 97116-GP; 97530-GP; 99285; G0378; J0360; J0696; J0780; J1815; J2185; J2270; J2405; J7030; J7060

== ENCOUNTER 2022-05-29 10:16 | Inpatient (IN) | payer OTHER ==
[~2022-05-29] VITALS: Ht 175.3 cm; Wt 59.7 kg
[~2022-05-29 10:16] MED LIST changes: -ALEN70TA27 PO; -ASA81 PO; +CHOL100038 PO; -CIPR500T5 PO; +DOCU-144 PO; -LEVO75CA5 PO; -LIP20 PO; +LORA-258 PO; -LOSA50TA28 PO; +LOSA50TA3 PO; -MECO10005 PO; +MERO500P IV
[2022-05-29 10:24] VITALS: BP_SYST 121
--- NOTE | 2022-05-29 10:25 | NUR ---
Carey ervin in [facility] - 05/29/22 at [email or web address]
--- NOTE | 2022-05-29 10:29 | NUR ---
ER DR. CLEANING EXAMINING PT AT THE BEDSIDE
--- NOTE | 2022-05-29 10:30 | NUR ---
Placed in room 03 . Placed on environmental monitoring technician, blood pressure machine and pulse oximeter. To gown for exam. Side rails up. Report given to GISELE MCCARTNEY.
[2022-05-29] MEDS ORDERED: FAMOTIDINE PF 20 MG/2 ML VIAL IVP ONE (10:45)
[2022-05-29] MEDS ORDERED: NS 500 ML IV ONE (10:45)
[2022-05-29] MEDS ORDERED: ACETAMINOPHEN 500 MG TABLET PO ONE (10:45)
--- NOTE | 2022-05-29 10:45 | NUR ---
DR CLEANING AT BEDSIDE FOR EVALUATION
--- NOTE | 2022-05-29 11:01 | NUR ---
CONSENT FOR CT WITH CONTRAST SIGNED. ALL QUESTIONS ANSWERED.
[2022-05-29 11:21] LABS: BASOPHILS % (AUTO) 0.4 % (0.0-2.0); EOSINOPHILS # (AUTO) 0.1 K/uL (0.0-0.4); EOSINOPHILS % (AUTO) 1.4 % (0.0-4.0); HEMATOCRIT 24.1 % (36-48); HEMOGLOBIN 7.9 g/dL (12.0-16.0); LYMPHOCYTES # (AUTO) 0.9 K/uL (1.0-5.5); LYMPHOCYTES % (AUTO) 12.8 % (20.5-51.5); MEAN CORPUSCULAR HEMOGLOBIN 29 pg (27-31); MEAN CORPUSCULAR HGB CONC 33 % (32-36); MEAN CORPUSCULAR VOLUME 89 fL (79.0-98.0); MONOCYTES # (AUTO) 0.6 K/uL (0.0-1.0); MONOCYTES % (AUTO) 8.5 % (1.7-9.3); NEUTROPHILS # (AUTO) 5.2 K/uL (1.8-7.7); NEUTROPHILS % (AUTO) 76.9 % (40.0-70.0); PLATELET COUNT (AUTO) 228 K/uL (130-430); RED BLOOD CELL COUNT(AUTO) 2.72 MIL/uL (4.2-6.2); RED CELL DISTRIBUTION WIDTH 14.4 % (9.0-15.0); WHITE BLOOD COUNT (AUTO) 6.7 K/uL (4.8-10.8)
[2022-05-29 11:37] LABS: ANION GAP 12 (5-15); CALCIUM 8.8 mg/dL (8.4-11.0); CHLORIDE 98 mmol/L (98-107); CREATININE 4.39 mg/dL (0.55-1.30); GLUCOSE 178 mg/dL (70-99); UREA NITROGEN, BLOOD 58 mg/dL (8-21)
[2022-05-29 11:41] LABS: ALANINE AMINOTRANSFERASE 13 U/L (12-78); ALBUMIN 2.5 g/dL (3.4-4.8); ASPARTATE AMINOTRANSFERASE 13 U/L (10-37); LIPASE 535 U/L (73-393); TOTAL BILIRUBIN 0.3 mg/dL (0.0-1.0)
--- NOTE | 2022-05-29 12:10 | NUR ---
TAKEN TO RADIOLOGY, CT CHANGED TO NO CONTRAST DUE TO LABS PER DR CLEANING
[2022-05-29] MEDS ORDERED: ONDANSETRON HCL 4 MG/2 ML VIAL IVP ONE (12:45)
[2022-05-29 12:59] LABS: BILIRUBIN,URINE NEGATIVE (NEGATIVE); BLOOD, URINE 3+ (NEGATIVE); COLOR,URINE YELLOW (YELLOW); GLUCOSE,URINE NEGATIVE (NEGATIVE); KETONES,URINE NEGATIVE (NEGATIVE); LEUKOCYTE ESTERASE ,URINE 2+ (NEGATIVE); NITRITE, URINE NEGATIVE (NEGATIVE); PH,URINE 5.5 (5.0-8.0); PROTEIN URINE 3+ (NEGATIVE); UROBILINOGEN,URINE 0.2 (0.2-1.0)
[2022-05-29 13:01] LABS: CLARITY/URINE TURBID (CLEAR)
--- NOTE | 2022-05-29 13:08 | NUR ---
LIZZETH SWABBBED AND SENT TO LAB
[2022-05-29 13:10] LABS: BACTERIA,URINE MANY /HPF (None Seen); WBC,URINE 50-80 /HPF (0-3)
[2022-05-29 13:11] LABS: MUCUS,URINE 1+ /LPF (None Seen)
--- NOTE | 2022-05-29 13:30 | NUR ---
Medication reconciliation completed with information provided by PATIENT. Any prior medication reconciliation on file was reviewed and corrected.
[2022-05-29] MEDS ORDERED: ASA81 PO (13:41)
[2022-05-29] MEDS ORDERED: LEVO88TA5 PO (13:41)
[2022-05-29] MEDS ORDERED: ATOR20TA64 PO (13:41)
[2022-05-29] MEDS ORDERED: INSU100I26 SQ (13:41)
--- NOTE | 2022-05-29 13:41 | NUR ---
Medication reconciliation completed with information provided by FAMILY. Any prior medication reconciliation on file was reviewed and corrected.
[2022-05-29] MEDS ORDERED: PIPERACILLIN/TAZOBACTAM 2.25 GM in NS 50 ML IV ONE (14:00)
--- NOTE | 2022-05-29 14:28 | NUR ---
RECTAL EXAM DONE WITH DR CLEANING AND CARD SENT TO LAB
[2022-05-29] MEDS: 0.45% NACL 1,000 ML IV SCH ×2 (14:45→23:30)
--- NOTE | 2022-05-29 15:02 | NUR ---
CALL TO PHARMACY FOR ABX ZOSYN.
--- NOTE | 2022-05-29 15:33 | NUR ---
Admit bed requested Patient will be admitted to care of . Admitted to TELEMETRY unit. Diagnosis ACUTE RENAL FAILURE Inpatient (Yes or No) Y Observation (Yes or No) N Orientation concerns or request close to nursing station (Yes or No) N Covid Status NEGATIVE On vent or bipap N Isolation requirements N Needs a sitter N From Home (Yes or if No enter name of facility) Y Requires Dialysis (Yes or No) N Med Rec Completed (Yes of No) YES
--- NOTE | 2022-05-29 16:40 | NUR ---
Patient will be admitted to care of [facility]. Admitted to TELE unit. Will go to room 129A. Belongings list completed. Complete and up to date summary report printed. SBAR report to be given at bedside with opportunity for questions. REPORT GIVEN TO NURSE AT BEDSIDE.
[2022-05-29 16:59] VITALS: BP_SYST 190
[2022-05-29 20:00] VITALS: BP_SYST 143
--- NOTE | 2022-05-29 20:00 | NUR ---
RECEIVED PATIENT IN BED , A/O X 3 OMANI SPEAKING AND SOME THAI TOO, SON AT BEDSIDE -THAI SPEAKING , UPDATED HIM PATIENT CONDITION, PLACED A CALL TO DR ROJAS REGARDING HOME MEDS
[2022-05-29] MEDS ORDERED: APIXABAN 2.5 MG TABLET PO SCH (22:30)
[2022-05-29] MEDS: INSULIN REGULAR, HUMAN 100 UNITS/ML, 3 ML VIAL (humuLIN R) SUBCUT PRN (23:22)
[2022-05-29] MEDS: METOPROLOL TARTRATE 25 MG TABLET PO SCH (23:28)
[2022-05-30] VITALS: BP_SYST 148
--- NOTE | 2022-05-30 | NUR ---
DR ROJAS AWARE THE HOME MEDS , HE STATES HE IS GOING TO REVIEW THE HOME MEDS TOMORROW FOR THE REST OF MEDS. NEW ORDER NOTED AND CARRIED OUT.
[2022-05-30 06:21] LABS: BASOPHILS % (AUTO) 0.6 % (0.0-2.0); EOSINOPHILS # (AUTO) 0.1 K/uL (0.0-0.4); EOSINOPHILS % (AUTO) 1.9 % (0.0-4.0); HEMATOCRIT 23.6 % (36-48); HEMOGLOBIN 7.9 g/dL (12.0-16.0); LYMPHOCYTES # (AUTO) 1.1 K/uL (1.0-5.5); LYMPHOCYTES % (AUTO) 16.3 % (20.5-51.5); MEAN CORPUSCULAR HEMOGLOBIN 29 pg (27-31); MEAN CORPUSCULAR HGB CONC 33 % (32-36); MEAN CORPUSCULAR VOLUME 88 fL (79.0-98.0); MONOCYTES # (AUTO) 0.7 K/uL (0.0-1.0); MONOCYTES % (AUTO) 10.3 % (1.7-9.3); NEUTROPHILS # (AUTO) 4.9 K/uL (1.8-7.7); NEUTROPHILS % (AUTO) 70.9 % (40.0-70.0); PLATELET COUNT (AUTO) 234 K/uL (130-430); RED BLOOD CELL COUNT(AUTO) 2.69 MIL/uL (4.2-6.2); RED CELL DISTRIBUTION WIDTH 14.9 % (9.0-15.0); WHITE BLOOD COUNT (AUTO) 6.9 K/uL (4.8-10.8)
[2022-05-30 06:54] LABS: ANION GAP 13 (5-15); CALCIUM 8.4 mg/dL (8.4-11.0); CHLORIDE 102 mmol/L (98-107); CREATININE 4.16 mg/dL (0.55-1.30); GLUCOSE 74 mg/dL (70-99); UREA NITROGEN, BLOOD 53 mg/dL (8-21)
[2022-05-30] MEDS: LEVOTHYROXINE SODIUM 0.088 MG TABLET PO SCH (07:49)
[2022-05-30 08:32] VITALS: BP_SYST 181
[2022-05-30] MEDS: METOPROLOL TARTRATE 25 MG TABLET PO SCH ×2 (10:20→21:43)
[2022-05-30] MEDS: traMADol HCL HCL 50 MG TABLET (ULTRAM) PO PRN (10:20)
[2022-05-30] MEDS: cefTRIAXone 1 GM IVPB PREMIX 50 ML IV SCH (10:21)
[2022-05-30 10:29] LABS: INR 1.1 (0.8-1.2); PROTHROMBIN TIME 11.5 SECS (9.5-12.5)
[2022-05-30] MEDS: 0.45% NACL 1,000 ML IV SCH (11:02)
[2022-05-30 12:00] VITALS: BP_SYST 192
[2022-05-30] MEDS: CALCIUM ACETATE 667 MG CAP PO SCH ×2 (12:01→17:05)
[2022-05-30] MEDS: INSULIN REGULAR, HUMAN 100 UNITS/ML, 3 ML VIAL (humuLIN R) SUBCUT PRN ×2 (12:48→22:05)
--- NOTE | 2022-05-30 13:59 | NUR ---
CONSULTATION PAGED/CALLED Reason for Consultation: [] SONJA Person Who was Notified: [] CHRIS Consulting Physician: [] DR ARCHULETA ONC ALL FOR DR PATEL Pecan Sheller Specialty: [] NEPHRO Ordering Physician: [] DR LITTLE
[2022-05-30] MEDS ORDERED: 0.45% NACL 1,000 ML IV SCH (14:30)
[2022-05-30 16:00] VITALS: BP_SYST 174
[2022-05-30] MEDS: cloNIDine HCL 0.1 MG TABLET PO PRN (17:05)
--- NOTE | 2022-05-30 19:20 | NUR ---
CLOSING NOTE Endorsed care to Clara JAQUEZ. Patient remains stable at this time.
--- NOTE | 2022-05-30 20:00 | NUR ---
OPENING Patient resting in bed, unlabored breathing on room air, no distress noted. Family at bedside. Safety precautions in place.
[2022-05-30 20:20] VITALS: BP_SYST 151
--- NOTE | 2022-05-30 22:00 | NUR ---
Spoke with Dr. Archer. Received order for renal standard diet and Accuchecks ACHS.
[2022-05-30] MEDS: INSULIN GLARGINE 100 UNITS/ML, 10 ML VIAL SUBCUT SCH (22:03)
[2022-05-30] MEDS ORDERED: GLUCOSE (DEXTROSE) ORAL GEL -Adults PO PRN (22:30)
[2022-05-30] MEDS ORDERED: DEXTROSE 50% JECT 50 ML DISP.SYRIN IVP PRN (22:30)
[2022-05-30] MEDS ORDERED: D5W 1,000 ML IV PRN (22:30)
[2022-05-31] VITALS (7 sets, daily range): BP systolic 144–169
[2022-05-31] MEDS: cloNIDine HCL 0.1 MG TABLET PO PRN (01:26)
--- NOTE | 2022-05-31 01:30 | NUR ---
BP 164/73, given clonidine PRN. Patient is asymptomatic.
--- NOTE | 2022-05-31 04:40 | NUR ---
ROUNDS Patient sleeping in bed, no distress noted.
[2022-05-31 05:51] LABS: BASOPHILS % (AUTO) 0.2 % (0.0-2.0); EOSINOPHILS % (AUTO) 0.2 % (0.0-4.0); LYMPHOCYTES # (AUTO) 0.8 K/uL (1.0-5.5); LYMPHOCYTES % (AUTO) 10.4 % (20.5-51.5); MEAN CORPUSCULAR HEMOGLOBIN 29 pg (27-31); MEAN CORPUSCULAR HGB CONC 33 % (32-36); MEAN CORPUSCULAR VOLUME 88 fL (79.0-98.0); MONOCYTES # (AUTO) 0.5 K/uL (0.0-1.0); MONOCYTES % (AUTO) 6.8 % (1.7-9.3); NEUTROPHILS % (AUTO) 82.4 % (40.0-70.0); PLATELET COUNT (AUTO) 199 K/uL (130-430); RED CELL DISTRIBUTION WIDTH 14.1 % (9.0-15.0); WHITE BLOOD COUNT (AUTO) 7.2 K/uL (4.8-10.8)
[2022-05-31 06:04] LABS: ANION GAP 11 (5-15); CALCIUM 8.6 mg/dL (8.4-11.0); CHLORIDE 99 mmol/L (98-107); CREATININE 4.14 mg/dL (0.55-1.30); GLUCOSE 209 mg/dL (70-99); UREA NITROGEN, BLOOD 50 mg/dL (8-21)
[2022-05-31] MEDS: LEVOTHYROXINE SODIUM 0.088 MG TABLET PO SCH (06:41)
[2022-05-31] MEDS: INSULIN REGULAR, HUMAN 100 UNITS/ML, 3 ML VIAL (humuLIN R) SUBCUT PRN ×2 (06:47→20:51)
--- NOTE | 2022-05-31 07:30 | NUR ---
CLOSING Patient resting in bed, no s/s distress noted. Gown and linens changed. 2 units insulin given per sliding scale this morning with small amount of juice. Patient has had decreased PO intake but said she will have some breakfast this morning. Endorsed to oncoming nurse.
[2022-05-31 08:05] LABS: HEMOGLOBIN 6.8 g/dL (12.0-16.0)
[2022-05-31 08:06] LABS: HEMATOCRIT 20.2 % (36-48)
[2022-05-31] MEDS: METOPROLOL TARTRATE 25 MG TABLET PO SCH ×2 (08:57→20:40)
[2022-05-31] MEDS: CALCIUM ACETATE 667 MG CAP PO SCH ×3 (08:57→18:03)
--- NOTE | 2022-05-31 08:57 | NUR ---
Scheduled IV abx and po medications given per order. Patient stable at this time with at bedside.
[2022-05-31] MEDS: cefTRIAXone 1 GM IVPB PREMIX 50 ML IV SCH (08:58)
--- NOTE | 2022-05-31 09:50 | NUR ---
Patient resting quietly in bed with at bedside. Patient stable at this time.
--- NOTE | 2022-05-31 10:35 | NUR ---
Patient asleep with at bedside. Patient stable.
--- NOTE | 2022-05-31 11:15 | NUR ---
DR LITTLE SEEN PT. GAVE ORDER TO SURGERY CONSULT DR GUTIERREZ FOR PERMACATH. DR GUTIERREZ CALLED BACK AND NOTIFIED FOR CONSULT. TO SEE PT.
--- NOTE | 2022-05-31 11:35 | NUR ---
Checked blood sugar: 145 mg/dl. Scheduled medication given per order. Patient stable with at bedside.
--- NOTE | 2022-05-31 11:37 | NUR ---
CONSULTATION PAGED REASON FOR CONSULTATION:PERMACATH WAS CONSULT CALLED?Y PERSON WHO WAS NOTIFIED:LIBRADO CONSULTING PHYSICIAN:BRENDA BERTRAND MYRON PRECISION MACHINING INSTRUCTOR SPECIALTY:SURGEON PRECISION MACHINING INSTRUCTOR PHONE NUMBER:[phone] REQUESTING PHYSICIAN:EKATERINA WAYTT
--- NOTE | 2022-05-31 18:08 | NUR ---
Scheduled medication given per order. Checked blood sugarL Addendum: 05/31/22 at 1809 by Jadyn López RN blood sugar: 138 mg/dl - no coverage required. Patient eating dinner with assist from . Patient stable.
--- NOTE | 2022-05-31 18:30 | NUR ---
Started transfusion of PRBCs. Patient resting with at bedside. Patient stable throughout shift.
--- NOTE | 2022-05-31 20:00 | NUR ---
OPENING Patient resting in bed, no distress noted. Blood transfusing, no sign of reaction. at bedside. Safety maintained.
--- NOTE | 2022-05-31 20:40 | NUR ---
Dietitian Recommendations * Ordered: Renal Standard (40g PRO), Consistent CHO (60g) * RD f/u on nutrition education Please refer to nutrition assessment for details, thanks! Anika Lackey MPH, RDN
[2022-05-31] MEDS: INSULIN GLARGINE 100 UNITS/ML, 10 ML VIAL SUBCUT SCH (20:49)
--- NOTE | 2022-05-31 22:00 | NUR ---
Blood transfusion completed. Patient tolerated well, no reaction noted.
[2022-05-31] MEDS ORDERED: MEROPENEM 1 GM IVPB PREMIX 50 ML IV SCH (23:30)
[2022-05-31] MEDS ORDERED: cloNIDine HCL 0.1 MG TABLET PO PRN (23:30)
--- NOTE | 2022-05-31 23:30 | NUR ---
Spoke with Dr. Archer. Orders received.
[2022-06-01] VITALS: BP_SYST 149
[2022-06-01] MEDS ORDERED: MEROPENEM 500 MG VIAL IV ONE (00:18)
[2022-06-01] MEDS: MEROPENEM 500 MG in NS 50 ML IV SCH ×2 (01:10→22:51)
--- NOTE | 2022-06-01 04:16 | NUR ---
ROUNDS Patient resting in bed, no s/s distress. Safety precautions in place.
[2022-06-01] MEDS: LEVOTHYROXINE SODIUM 0.088 MG TABLET PO SCH (06:37)
--- NOTE | 2022-06-01 06:48 | NUR ---
Patient resting in bed, no s/s distress noted. Blood sugar 115 this morning. Incontinent of urine, gown and linens changed. Discoloration to sacrum/buttocks, skin intact. Foam dressing in place. Complaining of pain to the mid/right lower abdomen, declined pain medication. Patient stated "maybe later." arrived back at bedside. Safety precautions in place.
[2022-06-01] MEDS: traMADol HCL HCL 50 MG TABLET (ULTRAM) PO PRN ×2 (06:58→15:56)
--- NOTE | 2022-06-01 07:02 | NUR ---
Tramadol PRN administered per patient request.
[2022-06-01 07:31] LABS: BASOPHILS # (AUTO) 0.1 K/uL (0.0-0.2); BASOPHILS % (AUTO) 0.5 % (0.0-2.0); EOSINOPHILS % (AUTO) 0.2 % (0.0-4.0); HEMATOCRIT 27.2 % (36-48); HEMOGLOBIN 9.3 g/dL (12.0-16.0); LYMPHOCYTES % (AUTO) 8.6 % (20.5-51.5); MEAN CORPUSCULAR HEMOGLOBIN 30 pg (27-31); MEAN CORPUSCULAR HGB CONC 34 % (32-36); MEAN CORPUSCULAR VOLUME 87 fL (79.0-98.0); MONOCYTES % (AUTO) 9.2 % (1.7-9.3); NEUTROPHILS # (AUTO) 9.3 K/uL (1.8-7.7); NEUTROPHILS % (AUTO) 81.5 % (40.0-70.0); PLATELET COUNT (AUTO) 239 K/uL (130-430); RED BLOOD CELL COUNT(AUTO) 3.13 MIL/uL (4.2-6.2); RED CELL DISTRIBUTION WIDTH 14.4 % (9.0-15.0); WHITE BLOOD COUNT (AUTO) 11.4 K/uL (4.8-10.8)
[2022-06-01 07:46] LABS: ANION GAP 12 (5-15); CALCIUM 8.6 mg/dL (8.4-11.0); CHLORIDE 97 mmol/L (98-107); CREATININE 3.94 mg/dL (0.55-1.30); GLUCOSE 110 mg/dL (70-99); UREA NITROGEN, BLOOD 50 mg/dL (8-21)
--- NOTE | 2022-06-01 08:00 | NUR ---
Initial Received patient awake in bed, respiration even and unlabored, no signs of distress. IV saline lock to right forearm patent. Maintain safety precaution, bed in low position , call light w/in reached, and at bedside for questions and answers.
--- NOTE | 2022-06-01 08:35 | NUR ---
Patient signed consent fo EGD in AM on 06/02/2022, nothing by mouth after midnight
[2022-06-01] MEDS ORDERED: PANTOPRAZOLE SODIUM 40 MG TAB PO ONE (08:45)
[2022-06-01 08:46] VITALS: BP_SYST 134
[2022-06-01] MEDS: CALCIUM ACETATE 667 MG CAP PO SCH ×3 (08:55→18:02)
[2022-06-01] MEDS: METOPROLOL TARTRATE 25 MG TABLET PO SCH ×2 (08:56→21:24)
--- NOTE | 2022-06-01 10:00 | NUR ---
Ultrasound in AM on 06/02/2022
--- NOTE | 2022-06-01 11:00 | NUR ---
Patient resting in bed, no signs of distress, reposition Q2 hours, at bedside
[2022-06-01] MEDS: ACETAMINOPHEN 500 MG TABLET PO PRN (11:30)
[2022-06-01 12:44] VITALS: BP_SYST 148
[2022-06-01 16:48] VITALS: BP_SYST 140
--- NOTE | 2022-06-01 18:29 | NUR ---
Closing Patient resting in bed, no signs of distress, change in condition, reposition for comfort, and medicated for pain throughout my shift. IV to right forearm patent. Incontinent, clean and dry patient applied Purewick. Patient scheduled for Ultrasound and EGD in AM. All safety precaution secured, bed in low position will endorsed.
[2022-06-01 20:22] VITALS: BP_SYST 138
[2022-06-01] MEDS: INSULIN GLARGINE 100 UNITS/ML, 10 ML VIAL SUBCUT SCH (21:36)
[2022-06-01] MEDS: INSULIN REGULAR, HUMAN 100 UNITS/ML, 3 ML VIAL (humuLIN R) SUBCUT PRN (21:42)
--- NOTE | 2022-06-01 23:33 | NUR ---
pt resting in bed, tolerated pko medicines. denies other cpolaint
[2022-06-02] VITALS (7 sets, daily range): BP systolic 118–140
--- NOTE | 2022-06-02 04:09 | NUR ---
currently NPO, no distress noted
[2022-06-02] MEDS: LEVOTHYROXINE SODIUM 0.088 MG TABLET PO SCH (07:00)
[2022-06-02] MEDS ORDERED: SIMETHICONE 40 MG/0.6 ML ML ONE (07:05)
[2022-06-02] MEDS ORDERED: fentaNYL CITRATE/PF 100 MCG/2 ML AMP ONE (07:05)
--- NOTE | 2022-06-02 07:05 | NUR ---
FBS 136, pt NPO.. AM levothyroxine held. pt currently @ GI Lab no distress overnight
[2022-06-02] MEDS ORDERED: MIDAZOLAM HCL 5 MG/5 ML VIAL ONE (07:06)
[2022-06-02 07:28] LABS: INR 1.1 (0.8-1.2); PROTHROMBIN TIME 11.3 SECS (9.5-12.5)
--- NOTE | 2022-06-02 07:30 | NUR ---
Received report patient off unit not in room having procedure done (EGD)
--- NOTE | 2022-06-02 08:20 | NUR ---
Return from GI LAB Received patient sleeping easily arouse, respiration even and unlabored, oxygen saturation 97% room air, BP 135/69, HR 68, RR18, temperature 97.2, no c/o throat pain/SOB, able to swallow without any discomfort. IV to right forearm patent. Maintain safety precaution, bed in low position and call light w/in reach, continue to monitor
[2022-06-02] MEDS: CALCIUM ACETATE 667 MG CAP PO SCH ×3 (09:24→17:34)
[2022-06-02] MEDS: METOPROLOL TARTRATE 25 MG TABLET PO SCH ×2 (09:24→21:33)
[2022-06-02] MEDS: PANTOPRAZOLE SODIUM 40 MG TAB PO SCH (09:26)
[2022-06-02] MEDS: INSULIN REGULAR, HUMAN 100 UNITS/ML, 3 ML VIAL (humuLIN R) SUBCUT PRN ×3 (12:34→21:53)
--- NOTE | 2022-06-02 15:00 | NUR ---
Patient started drinking Golytely, for colonoscopy procedure in AM
[2022-06-02] MEDS ORDERED: BISACODYL 5 MG TABLET.DR (DULCOLAX) PO ONE (17:00)
[2022-06-02] MEDS ORDERED: GOLYTELY / COLYTE SOLUTION 4 LITERS PO ONE (18:00)
--- NOTE | 2022-06-02 19:15 | NUR ---
change of shift.pt.presents quiescent affect;calm.pt.to submit to colonoscopy:06/03/22.pt has initiated the oral prep:luis. pt.presents general status stable.respiratory status stable@room air.pt.capable to ambulate/reposition self.pt's primary language martiniquais.call light/telephone w/in access of the pt.
--- NOTE | 2022-06-02 19:32 | NUR ---
Closing Patient resting in bed, no signs of distress. Patient scheduled for colonoscopy in AM. All safety precaution secured, bed in low position will endorsed.
--- NOTE | 2022-06-02 20:00 | NUR ---
pt.assessed.v/s assessed values wnl.no c/o pain,nausea.pt.continued w oral prep.pt.presented bm.pt.cleaned/repositioned. call light/telephone placed w/in access of the pt.
--- NOTE | 2022-06-02 20:30 | NUR ---
blood glucose assessed value:178mg/dl.
--- NOTE | 2022-06-02 21:00 | NUR ---
2100p medications administered.pt.capable to ingest the po medications w/out difficulty.call light/telephone w/in access of the pt. Addendum: 06/03/22 at 0149 by David Lange RN insulin;regular:2-u administered per sliding scale.insulin lantus;10-u administered scheduled dose.
--- NOTE | 2022-06-02 21:30 | NUR ---
pt.requested medication;pain.ultram:50mg po administered.to assess the efficacy of the pain medication per pain mgx protocol.
[2022-06-02] MEDS: traMADol HCL HCL 50 MG TABLET (ULTRAM) PO PRN (21:32)
[2022-06-02] MEDS: INSULIN GLARGINE 100 UNITS/ML, 10 ML VIAL SUBCUT SCH (21:55)
--- NOTE | 2022-06-02 22:06 | NUR ---
Dewayne Archer s/w Ned
[2022-06-02] MEDS: ONDANSETRON HCL 4 MG/2 ML VIAL IVP PRN (22:54)
--- NOTE | 2022-06-02 23:00 | NUR ---
pt.presented nausea.zofran;4mg ivp administered.to assess the efficacy of the medication per medication protocol.
[2022-06-02] MEDS: MEROPENEM 500 MG in NS 50 ML IV SCH (23:59)
--- NOTE | 2022-06-03 | NUR ---
pt.assessed.v/s assessed values wnl.no c/o pain,nausea.pt.assessed for cleanliness pt.cleaned repositioned.pt.refused to continue the oral prep;luis.to don lund/lisa to don alamo.to apprise of pt's status.call light/telephone placed w/in access of the pt.
--- NOTE | 2022-06-03 00:35 | NUR ---
Paged Dr. Joseph s/w Tri
--- NOTE | 2022-06-03 02:00 | NUR ---
pt.assessed.pt.quiescent.per flacc pain mgx pt.absent facial grimaces /body posturing.pt.assessed for cleanliness. pt.repositioned.call light/telephone placed w/in access of the pt.
--- NOTE | 2022-06-03 04:00 | NUR ---
pt.assessed.pt.quiescent;somnolent.per flacc pain mgx pt.absent facial grimaces/body posturing.pt.assessed for cleanliness pt.repositioned.call light/telephone placed w/in access of the pt.
[2022-06-03] MEDS: LEVOTHYROXINE SODIUM 0.088 MG TABLET PO SCH (05:32)
--- NOTE | 2022-06-03 06:00 | NUR ---
pt.assessed.no c/o pain,nausea.blood glucose assessed value;127mg/dl.ememas x2 administered,colonoscopy in am. call light/telephone placed w/in access of the pt.
[2022-06-03 06:24] LABS: PROTHROMBIN TIME 10.2 SECS (9.5-12.5)
[2022-06-03 06:38] LABS: ALANINE AMINOTRANSFERASE 15 U/L (12-78); ALBUMIN 1.9 g/dL (3.4-4.8); ANION GAP 14 (5-15); ASPARTATE AMINOTRANSFERASE 18 U/L (10-37); CALCIUM 8.5 mg/dL (8.4-11.0); CHLORIDE 94 mmol/L (98-107); CREATININE 3.94 mg/dL (0.55-1.30); GLUCOSE 130 mg/dL (70-99); TOTAL BILIRUBIN 0.3 mg/dL (0.0-1.0); UREA NITROGEN, BLOOD 53 mg/dL (8-21)
[2022-06-03] MEDS ORDERED: SIMETHICONE 40 MG/0.6 ML ML ONE (07:07)
[2022-06-03] MEDS ORDERED: MIDAZOLAM HCL 5 MG/5 ML VIAL ONE (07:08)
[2022-06-03] MEDS ORDERED: fentaNYL CITRATE/PF 100 MCG/2 ML AMP ONE (07:08)
--- NOTE | 2022-06-03 07:45 | NUR ---
Patient taken in stable condition to GI Lab for colonoscopy.
[2022-06-03] MEDS: CALCIUM ACETATE 667 MG CAP PO SCH ×3 (08:00→17:52)
--- NOTE | 2022-06-03 08:15 | NUR ---
Patient off unit for procedure.
[2022-06-03] MEDS: METOPROLOL TARTRATE 25 MG TABLET PO SCH ×2 (09:00→21:29)
--- NOTE | 2022-06-03 09:05 | NUR ---
Patient returned to unit in stable condition with at bedside. Patient stable at this time.
[2022-06-03 09:10] VITALS: BP_SYST 112
[2022-06-03] MEDS: PANTOPRAZOLE SODIUM 40 MG TAB PO SCH (11:42)
--- NOTE | 2022-06-03 11:47 | NUR ---
Checked blood sugar: 87 mg/dl - no coverage required. Patient stable with at bedside.
[2022-06-03 12:16] VITALS: BP_SYST 127
--- NOTE | 2022-06-03 12:30 | NUR ---
Scheduled po medication given per order. Patient stable; resting comfortably in bed with at bedside.
--- NOTE | 2022-06-03 12:44 | NUR ---
Nutrition F/U RD reviewed pts current EMR including diet hx, physician notes, nursing notes, pertinent labs/meds/procedures, care trends and care activity. Medical History Comment: Per EMR: 86y female with PMHx DM, DM retinopathy, PVD, dyslipidemia, afib, HTN, hx stroke, SxHx appendectomy who presented to ED for severe back pain + poor PO/appetite 3-4 days TRUST ADMINISTRATIVE ASSISTANT per MD note. S/p kidney US revealed unilateral kidney 6.7cm; pt has pylenophritis; found with chronic renal failure; pt now has permacath placement order and may need Hemodialysis Subjective Information Pt had colonoscopy today. RD rounded to pt room but pt was asleep at the time. RD s/w pt RN. She attested to her receiving a full liquid diet and her is helping her eat. RD asked about her LBM; 06/03 x 5, and that was d/t her colonoscopy this AM. Per EMR review; pt abd is soft, distended w/ active bowel sounds. Pt is likely not meeting nutritional needs at this time. Current Diet Order/Nutrition Support Full liquid x 0 days Pertinent labs: WBC 11.4 H, Na 129 L, Ch 94 L, BUN 53 H, Cre 3.94 H, BG 130 H % PO intake Poor avg of 33% x 9 meals Last BM 06/03 x 5 Estimated Energy Expenditure (kcals/day) 4903-1803 (25-30 kcal/kg for normal BMI, CKD no HD) Estimated Protein Required (g/day) 35-47 (.6-.8 g/kg for CKD no HD) Estimated Fluid Required (l/day) per MD Problem/Etiology/Signs/Symptoms * Altered nutrition-related lab values r/t renal dysfunction a/e/b elevated BUN, Cre, BG; low Na, Hgb, Hct lab values (ongoing) Expected Outcomes/Goals PO intake provides >85% estimated nutritional needs, wt maintenance/skin integrity, nutrition-related labs WNL, normal GI function w/BM q1-3 days Dietitian Recommendations * If/when medically appropriate continue Renal Standard (40g PRO), Consistent CHO (60g) * RD f/u on nutrition education Follow up High risk: f/u in 2-3 days GS, MPH, RD
--- NOTE | 2022-06-03 12:45 | NUR ---
Dietitian Recommendations * If/when medically appropriate continue Renal Standard (40g PRO), Consistent CHO (60g) * RD f/u on nutrition education GS, MPH, RD Please refer to Nutrition F/U for further details. Thanks!
--- NOTE | 2022-06-03 15:35 | NUR ---
Patient stable; asleep with at bedside.
[2022-06-03 16:13] VITALS: BP_SYST 123
[2022-06-03] MEDS: EPOETIN ALFA-EPBX 3,000 UNITS/ML VIAL SUBCUT SCH (17:52)
--- NOTE | 2022-06-03 17:55 | NUR ---
Scheduled subq and po medications given per order. Checked blood sugar: 134 mg/dl - no coverage required per order. Patient stable with at bedside.
[2022-06-03 20:00] VITALS: BP_SYST 148
[2022-06-03] MEDS: MEROPENEM 500 MG in NS 50 ML IV SCH (21:28)
[2022-06-03] MEDS: INSULIN GLARGINE 100 UNITS/ML, 10 ML VIAL SUBCUT SCH (22:06)
--- NOTE | 2022-06-03 22:55 | NUR ---
Patient in bed. Turned repositioned q2. No acute distress noted. Will continue to monitor.
[2022-06-04] VITALS: BP_SYST 136
[2022-06-04] MEDS: LEVOTHYROXINE SODIUM 0.088 MG TABLET PO SCH (05:01)
[2022-06-04 06:44] LABS: BASOPHILS % (AUTO) 0.3 % (0.0-2.0); EOSINOPHILS # (AUTO) 0.2 K/uL (0.0-0.4); HEMATOCRIT 25.2 % (36-48); HEMOGLOBIN 9.1 g/dL (12.0-16.0); LYMPHOCYTES # (AUTO) 0.9 K/uL (1.0-5.5); LYMPHOCYTES % (AUTO) 7.7 % (20.5-51.5); MEAN CORPUSCULAR HEMOGLOBIN 30 pg (27-31); MEAN CORPUSCULAR HGB CONC 36 % (32-36); MEAN CORPUSCULAR VOLUME 84 fL (79.0-98.0); MONOCYTES # (AUTO) 0.5 K/uL (0.0-1.0); MONOCYTES % (AUTO) 4.5 % (1.7-9.3); NEUTROPHILS # (AUTO) 9.9 K/uL (1.8-7.7); NEUTROPHILS % (AUTO) 85.5 % (40.0-70.0); PLATELET COUNT (AUTO) 250 K/uL (130-430); RED BLOOD CELL COUNT(AUTO) 2.98 MIL/uL (4.2-6.2); RED CELL DISTRIBUTION WIDTH 14.3 % (9.0-15.0); WHITE BLOOD COUNT (AUTO) 11.6 K/uL (4.8-10.8)
[2022-06-04 07:27] LABS: ANION GAP 14 (5-15); CALCIUM 8.2 mg/dL (8.4-11.0); CHLORIDE 95 mmol/L (98-107); CREATININE 3.96 mg/dL (0.55-1.30); GLUCOSE 211 mg/dL (70-99); PHOSPHORUS 5.4 mg/dL (2.7-4.5); UREA NITROGEN, BLOOD 54 mg/dL (8-21)
[2022-06-04] MEDS: CALCIUM ACETATE 667 MG CAP PO SCH ×3 (08:00→18:51)
[2022-06-04 08:47] VITALS: BP_SYST 132
--- NOTE | 2022-06-04 08:47 | NUR ---
Patient resting quietly in bed with eyes closed and at bedside. Patient stable at this time.
[2022-06-04] MEDS: METOPROLOL TARTRATE 25 MG TABLET PO SCH ×2 (08:53→21:42)
[2022-06-04] MEDS: PANTOPRAZOLE SODIUM 40 MG TAB PO SCH (08:54)
--- NOTE | 2022-06-04 10:00 | NUR ---
Patient taken in stable condition to OR for dialysis cath placement. at bedside.
[2022-06-04] MEDS ORDERED: KETOROLAC TROMETHAMINE 30 MG VIAL ONE (10:05)
[2022-06-04] MEDS ORDERED: PROPOFOL 200MG/ 20ML VIAL (DIPRIVAN) IV ONE (10:05)
[2022-06-04] MEDS ORDERED: MIDAZOLAM HCL 2 MG/2 ML VIAL (VERSED) ONE (10:05)
[2022-06-04] MEDS ORDERED: D5W 100 ML IV.SOLN IV ONE (10:05)
[2022-06-04] MEDS ORDERED: NS IRRIG SOLN 1000 ML IR ONE (10:05)
[2022-06-04] MEDS ORDERED: LIDOCAINE/EPI MPF 1%1:200000 30 ML VIAL ONE (10:05)
[2022-06-04] MEDS ORDERED: BUPIVACAINE /PF 0.5% 30 ML VIAL ONE (10:05)
[2022-06-04] MEDS ORDERED: HEPARIN SODIUM,PORCINE 10,000 UNIT/ML VIAL ONE (10:05)
[2022-06-04] MEDS ORDERED: NS 50 ML BAG IV ONE (10:05)
--- NOTE | 2022-06-04 10:51 | NUR ---
>>>PT NOTES<<< PHYSICAL THERAPY EVALUATION COMPLETED. PLEASE REFER TO EVAL FOR DETAILS.
--- NOTE | 2022-06-04 11:05 | NUR ---
Patient still off unit at this time. at bedside.
[2022-06-04] MEDS ORDERED: MORPHINE 4 MG INJ. 4 MG/ML VIAL IVP PRN (11:45)
[2022-06-04] MEDS ORDERED: METOCLOPRAMIDE HCL 10 MG/2 ML VIAL IVP PRN (11:45)
--- NOTE | 2022-06-04 11:53 | NUR ---
Patient returned to unit in stable condition with HD cath in right upper chest. at bedside.
--- NOTE | 2022-06-04 11:59 | NUR ---
Checked blood sugar: 171 mg/dl - will cover per sliding scale when lunch is served. Patient stable with at bedside.
[2022-06-04 12:38] VITALS: BP_SYST 136
[2022-06-04] MEDS: INSULIN REGULAR, HUMAN 100 UNITS/ML, 3 ML VIAL (humuLIN R) SUBCUT PRN (13:41)
--- NOTE | 2022-06-04 13:42 | NUR ---
Scheduled medication given per order and covered per sliding scale: 2 units. Patient stable with at bedside.
--- NOTE | 2022-06-04 16:20 | NUR ---
Patient resting comfortably in bed with at bedside. Patient stable at this time.
[2022-06-04] MEDS ORDERED: HEPARIN SODIUM,PORCINE 5,000 UNITS/ML VIAL MC ONE (16:45)
[2022-06-04 17:18] VITALS: BP_SYST 122
--- NOTE | 2022-06-04 17:29 | NUR ---
Checked blood sugar: 121 mg/dl - no coverage required. Patient stable with at bedside.
--- NOTE | 2022-06-04 18:53 | NUR ---
Scheduled medication given per order. Patient resting in bed with dialysis in progress; dialysis nurse and at bedside. Patient stable throughout shift.
[2022-06-04 20:00] VITALS: BP_SYST 153
[2022-06-04] MEDS: MEROPENEM 500 MG in NS 50 ML IV SCH (21:42)
[2022-06-04] MEDS: INSULIN GLARGINE 100 UNITS/ML, 10 ML VIAL SUBCUT SCH (21:52)
[2022-06-04] MEDS: ACETAMINOPHEN 500 MG TABLET PO PRN (21:59)
[2022-06-05] VITALS: BP_SYST 151
[2022-06-05] MEDS: LEVOTHYROXINE SODIUM 0.088 MG TABLET PO SCH (04:40)
[2022-06-05 06:06] LABS: BASOPHILS # (AUTO) 0.1 K/uL (0.0-0.2); BASOPHILS % (AUTO) 0.6 % (0.0-2.0); EOSINOPHILS # (AUTO) 0.1 K/uL (0.0-0.4); EOSINOPHILS % (AUTO) 1.4 % (0.0-4.0); HEMATOCRIT 24.6 % (36-48); HEMOGLOBIN 8.8 g/dL (12.0-16.0); LYMPHOCYTES # (AUTO) 0.8 K/uL (1.0-5.5); LYMPHOCYTES % (AUTO) 7.9 % (20.5-51.5); MEAN CORPUSCULAR HEMOGLOBIN 30 pg (27-31); MEAN CORPUSCULAR HGB CONC 36 % (32-36); MEAN CORPUSCULAR VOLUME 85 fL (79.0-98.0); MONOCYTES # (AUTO) 0.4 K/uL (0.0-1.0); MONOCYTES % (AUTO) 4.6 % (1.7-9.3); NEUTROPHILS # (AUTO) 8.2 K/uL (1.8-7.7); NEUTROPHILS % (AUTO) 85.5 % (40.0-70.0); PLATELET COUNT (AUTO) 215 K/uL (130-430); RED BLOOD CELL COUNT(AUTO) 2.89 MIL/uL (4.2-6.2); RED CELL DISTRIBUTION WIDTH 14.6 % (9.0-15.0); WHITE BLOOD COUNT (AUTO) 9.6 K/uL (4.8-10.8)
[2022-06-05 06:25] LABS: ANION GAP 9 (5-15); CHLORIDE 100 mmol/L (98-107); CREATININE 2.57 mg/dL (0.55-1.30); GLUCOSE 144 mg/dL (70-99); UREA NITROGEN, BLOOD 28 mg/dL (8-21)
--- NOTE | 2022-06-05 07:55 | NUR ---
Patient received awake and alert, able to communicate needs. Primary language is Luxembourgish but able to communicate well in Spanish. Patient on tele, noted to be in afib with bbb. Patient has non pitting edema. On room air, tolerating well. Patient is incontinent gi. Hemodialysis patient. Received with right chest tunneled catheter. Per NOC RN last hemodialysis day was yesterday and patient reported to have had 1 liter removed. Patient with right hand/wrist 22g iv patent and flushing
[2022-06-05] MEDS: CALCIUM ACETATE 667 MG CAP PO SCH ×3 (09:00→17:22)
[2022-06-05] MEDS: METOPROLOL TARTRATE 25 MG TABLET PO SCH ×2 (09:00→21:33)
[2022-06-05] MEDS: PANTOPRAZOLE SODIUM 40 MG TAB PO SCH (09:00)
[2022-06-05] MEDS: ACETAMINOPHEN 500 MG TABLET PO PRN (09:01)
[2022-06-05 09:43] VITALS: BP_SYST 143
[2022-06-05] MEDS: INSULIN REGULAR, HUMAN 100 UNITS/ML, 3 ML VIAL (humuLIN R) SUBCUT PRN ×2 (11:43→21:36)
--- NOTE | 2022-06-05 11:43 | NUR ---
Patient found with IV pulled out with family at bedside. Patient and family report not knowing how it happened. Blankets removed and was provided new clean blankets and sheets. New IV placed to right FA 22g, saline flushed and locked. Per patient, did not want IV on left arm as she had elbow pain earlier today. Denies pain at this time.
[2022-06-05 12:54] VITALS: BP_SYST 116
[2022-06-05] MEDS: EPOETIN ALFA-EPBX 3,000 UNITS/ML VIAL SUBCUT SCH (16:37)
[2022-06-05 17:07] VITALS: BP_SYST 130
--- NOTE | 2022-06-05 20:00 | NUR ---
atient received awake and alert, able to communicate needs. Primary language is Lithuanian but able to communicate well in Cameroonian, family at bedside/ Patient on tele, noted to be in afib . Patient has non pitting edema. On room air, tolerating well. Patient is incontinent gi. Hemodialysis patient. 06/04 Dialysized. Received with right chest tunneled catheter. Per AM RN last hemodialysis day was yesterday and patient reported to have had 1 liter removed. Patient with right hand/wrist 22g iv patent and flushing. Pt in good spirits after speaking to family. WIll continue to monitor
[2022-06-05 20:09] VITALS: BP_SYST 127
[2022-06-05 20:11] VITALS: BP_SYST 127
[2022-06-05] MEDS: MEROPENEM 500 MG in NS 50 ML IV SCH (21:32)
[2022-06-05] MEDS: INSULIN GLARGINE 100 UNITS/ML, 10 ML VIAL SUBCUT SCH (21:37)
[2022-06-06 00:30] VITALS: BP_SYST 129
--- NOTE | 2022-06-06 06:00 | NUR ---
BGL 56, given orange juice, will recheck
[2022-06-06] MEDS: LEVOTHYROXINE SODIUM 0.088 MG TABLET PO SCH (06:09)
--- NOTE | 2022-06-06 06:26 | NUR ---
rechecked. BGL 73, given 1 more orange juice
[2022-06-06 08:00] VITALS: BP_SYST 155
--- NOTE | 2022-06-06 08:05 | NUR ---
OPENING NOTES: PT SITTING EDGE OF BED A/O X4. PT IS NPO FOR LEXISCAN AT 11:30. NO S/S OF DISTRESS OR PAIN REPORTED AT THIS TIME. BREATHING IS EVEN AND UNLABORED ON RA. ALL NEEDS MET AT THIS TIME, SAFETY CHECKS MADE AND CALL LIGHT WITHIN REACH. Addendum: 06/06/22 at 0841 by Tasha Espinoza LVN ERROR: NOTE INTENDED FOR OTHER PT. PT IS IN BED A/O X4. FAMILY AT BEDSIDE. NO S/S OF DISTRESS OR PAIN REPORTED AT THIS TIME. BREATHING IS EVEN AND UNLABORED ON RA. ALL NEEDS MET AT THIS TIME, SAFETY CHECKS MADE AND CALL LIGHT WITHIN REACH.
--- NOTE | 2022-06-06 09:08 | NUR ---
SCNNER: COMPUTER SCANNER NOT WORKING. DOUBLE CHECKED PATIENT'S ID BAND AND NUMBER AND DOUBLED CHECKED MEDICATION BEFORE ADMINISTRATION.
[2022-06-06] MEDS: CALCIUM ACETATE 667 MG CAP PO SCH ×3 (09:12→17:13)
[2022-06-06] MEDS: PANTOPRAZOLE SODIUM 40 MG TAB PO SCH (09:13)
[2022-06-06] MEDS: METOPROLOL TARTRATE 25 MG TABLET PO SCH ×2 (09:13→21:22)
[2022-06-06] MEDS: cloNIDine HCL 0.1 MG/24 HR PATCH.TDWK TD SCH (09:13)
[2022-06-06] MEDS: traMADol HCL HCL 50 MG TABLET (ULTRAM) PO PRN (09:24)
[2022-06-06] MEDS ORDERED: NALOXONE HCL 0.4 MG/ML AMP (NARCAN) IVP PRN (11:15)
[2022-06-06 12:07] LABS: HEPATITIS A AB, IgM Negative (Negative); HEPATITIS B CORE AB, IgM Negative (Negative); HEPATITIS B SURFACE AG Negative (Negative)
[2022-06-06 13:25] VITALS: BP_SYST 130
--- NOTE | 2022-06-06 15:59 | NUR ---
PHYSICAL THERAPY CO-SIGN The Physical Therapy Progress Notes documented by Scoring Machine Operator have been reviewed. Reviewed/Co-Signed by: Ha Moses Documentation Done by:PAOLA JUARES Addendum: 06/06/22 at 1600 by Ha Moses PT Amended: Links added.
[2022-06-06 17:00] VITALS: BP_SYST 133
--- NOTE | 2022-06-06 18:31 | NUR ---
CLOSING NOTES: PT IS IN BED EATING DINNER. FAMILY AT BEDSIDE ASSISTING IN THE FEEDING. NO S/S OF DISTRESS OR PAIN REPORTED. BREATHING IS EVEN AND UNLABORED ON RA. ALL NEEDS MET AT THIS TIME, SAFETY CHECKS MADE AND CALL LIGHT WITHIN REACH. WILL ENDORSE TO HOP PICKER.
[2022-06-06 20:00] VITALS: BP_SYST 140
[2022-06-06] MEDS: INSULIN GLARGINE 100 UNITS/ML, 10 ML VIAL SUBCUT SCH (21:25)
[2022-06-06] MEDS: MEROPENEM 500 MG in NS 50 ML IV SCH (23:10)
[2022-06-07 01:51] VITALS: BP_SYST 135
[2022-06-07] MEDS: LEVOTHYROXINE SODIUM 0.088 MG TABLET PO SCH (06:34)
[2022-06-07 08:00] VITALS: BP_SYST 122
--- NOTE | 2022-06-07 08:09 | NUR ---
OPENING NOTES: PT IN BED A/0 X4. FAMILY IS AT BEDSIDE. NO S/S OF DISTRESS. PT DID REPORT PAIN. BREATHING IS EVEN AND UNLABORED ON RA. ALL NEEDS MET AT THIS TIME, SAFETY CHECKS MADE AND CALL LIGHT WITHIN REACH.
[2022-06-07] MEDS: PANTOPRAZOLE SODIUM 40 MG TAB PO SCH (08:40)
[2022-06-07] MEDS: CALCIUM ACETATE 667 MG CAP PO SCH ×3 (08:40→17:15)
[2022-06-07] MEDS: METOPROLOL TARTRATE 25 MG TABLET PO SCH ×2 (08:40→21:06)
--- NOTE | 2022-06-07 09:12 | NUR ---
INFORMED DR STALEY ABOUT PT'S LACK OF APPETITE AND DIFFICULTY SWALLOWING. INFORMED DR STALEY THAT THE PT'S SON WANTS TO TALK WITH HIM AND GAVE HIM THE SONS PHONE NUMBER. SWALLOW EVAL ORDERED.
--- NOTE | 2022-06-07 10:06 | NUR ---
NOTES: SPOKE WITH CREATIVE MANAGER CHERYL IN REGARDS TO PT'S LABS AND DIALYSIS. SHE IC CALLING THE MD.
[2022-06-07 11:55] VITALS: BP_SYST 132
[2022-06-07 15:56] LABS: ANION GAP 10 (5-15); CALCIUM 8.9 mg/dL (8.4-11.0); CHLORIDE 97 mmol/L (98-107); CREATININE 3.26 mg/dL (0.55-1.30); GLUCOSE 183 mg/dL (70-99); UREA NITROGEN, BLOOD 32 mg/dL (8-21)
--- NOTE | 2022-06-07 16:05 | NUR ---
PHYSICAL THERAPY CO-SIGN The Physical Therapy Progress Notes documented by Copy Room Technician have been reviewed. Reviewed/Co-Signed by: Fausto Murillo Documentation Done by:PAOLA JUARES Addendum: 06/07/22 at 1606 by Fausto Murillo PT Amended: Links added.
[2022-06-07] MEDS ORDERED: EPOETIN ALFA 20,000 UNITS/ML VIAL SUBCUT SCH (17:00)
[2022-06-07 17:12] VITALS: BP_SYST 140
[2022-06-07] MEDS: EPOETIN ALFA-EPBX 3,000 UNITS/ML VIAL SUBCUT SCH (17:23)
[2022-06-07] MEDS: INSULIN REGULAR, HUMAN 100 UNITS/ML, 3 ML VIAL (humuLIN R) SUBCUT PRN (17:29)
--- NOTE | 2022-06-07 17:39 | NUR ---
ST EVALUATION COMPLETED. ST TX NOT INDICATED AT THIS TIME. RECOMMEND PO DIET OF PUREE AND THIN LIQUIDS. 1:1 FEEDER AND FULL ASPIRATION PRECAUTIONS.
--- NOTE | 2022-06-07 18:43 | NUR ---
CLOSING NOTES: PT IS IN BED WITH EYES CLOSED. FAMILY AT BEDSIDE. NO S/S OF DISTRESS OR PAIN REPORTED. BREATHING IS EVEN AND UNLABORED ON RA. ALL NEEDS MET AT THIS TIME, SAFETY CHECKS MADE AND CALL LIGHT WITHIN REACH.
[2022-06-07 19:57] VITALS: BP_SYST 138
--- NOTE | 2022-06-07 20:00 | NUR ---
Opening note- Met pt and at bedside. pt awake and oriented x 3. 's helping pt to eat and pt has poor appetite. v/s stable afebrile. Tele-Controlled A-FIB.
[2022-06-07] MEDS: INSULIN GLARGINE 100 UNITS/ML, 10 ML VIAL SUBCUT SCH (21:09)
[2022-06-08 00:24] VITALS: BP_SYST 145
--- NOTE | 2022-06-08 05:52 | NUR ---
Closing note- pt had bm x 1 brown form stool. Also pt voided x 1. Given pericare and applied skin protective cream for redness on bilateral groin and coccyx/sacral area. Rt chest tunneled cath dressing intact. Has order for HD today.
[2022-06-08] MEDS: LEVOTHYROXINE SODIUM 0.088 MG TABLET PO SCH (06:21)
--- NOTE | 2022-06-08 07:25 | NUR ---
opening note received SBAR from night RN. Patient in bed, respirations even, non labored, bed in low and locked position call light within reach. bed alarm on.
[2022-06-08 08:00] VITALS: BP_SYST 113
--- NOTE | 2022-06-08 08:48 | NUR ---
family bedside feeding patient breakfast.
[2022-06-08] MEDS: PANTOPRAZOLE SODIUM 40 MG TAB PO SCH (08:53)
[2022-06-08] MEDS: METOPROLOL TARTRATE 25 MG TABLET PO SCH ×2 (08:54→20:31)
[2022-06-08] MEDS: CALCIUM ACETATE 667 MG CAP PO SCH ×3 (08:54→17:56)
[2022-06-08 10:24] LABS: BASOPHILS % (AUTO) 0.6 % (0.0-2.0); EOSINOPHILS # (AUTO) 0.2 K/uL (0.0-0.4); HEMATOCRIT 26.6 % (36-48); HEMOGLOBIN 9.1 g/dL (12.0-16.0); LYMPHOCYTES # (AUTO) 1.1 K/uL (1.0-5.5); LYMPHOCYTES % (AUTO) 12.7 % (20.5-51.5); MEAN CORPUSCULAR HEMOGLOBIN 30 pg (27-31); MEAN CORPUSCULAR HGB CONC 34 % (32-36); MEAN CORPUSCULAR VOLUME 88 fL (79.0-98.0); MONOCYTES # (AUTO) 0.4 K/uL (0.0-1.0); MONOCYTES % (AUTO) 4.4 % (1.7-9.3); NEUTROPHILS # (AUTO) 6.8 K/uL (1.8-7.7); NEUTROPHILS % (AUTO) 80.3 % (40.0-70.0); PLATELET COUNT (AUTO) 178 K/uL (130-430); RED BLOOD CELL COUNT(AUTO) 3.02 MIL/uL (4.2-6.2); WHITE BLOOD COUNT (AUTO) 8.5 K/uL (4.8-10.8)
[2022-06-08 10:27] LABS: ANION GAP 6 (5-15); CALCIUM 8.3 mg/dL (8.4-11.0); CHLORIDE 100 mmol/L (98-107); CREATININE 2.53 mg/dL (0.55-1.30); GLUCOSE 151 mg/dL (70-99); UREA NITROGEN, BLOOD 27 mg/dL (8-21)
[2022-06-08 11:54] VITALS: BP_SYST 130
--- NOTE | 2022-06-08 12:21 | NUR ---
Nutrition F/U RD reviewed pts current EMR including diet hx, physician notes, nursing notes, pertinent labs/meds/procedures, care trends and care activity. Medical History Comment: Per EMR: 86y female with PMHx DM, DM retinopathy, PVD, dyslipidemia, afib, HTN, hx stroke, SxHx appendectomy who presented to ED for severe back pain + poor PO/appetite 3-[address] [facility] per MD note. S/p kidney US revealed unilateral kidney 6.7cm; pt has pylenophritis; found with chronic renal failure; pt now has permacath placement order and may need Hemodialysis Subjective Information Late follow-up d/t heavy caseload. RD rounded to pt room as she was receiving dialysis. She was unable to talk. politely refused the RD asking him any questions. RD s/w RN about pt condition. She attested to pt not eating well; documented PO avg 27%. She said the helps to feed her meals. Per EMR review; pt abd is soft, distended w/ active bowel sounds. Pt is likely not meeting nutritional needs at this time. Current Diet Order/Nutrition Support Puree x 0 days Pertinent labs: WBC 8.5 WNL, Na 134 L, BUN 27 H, Cre 2.53 H, BG 151 H % PO intake Poor avg of 27% x 9 meals (worsening) Last BM 2/4 x 1 Estimated Energy Expenditure (kcals/day) 3260-0618 (25-30 kcal/kg for normal BMI, CKD no HD) Estimated Protein Required (g/day) 35-47 (.6-.8 g/kg for CKD no HD) Estimated Fluid Required (l/day) per MD Problem/Etiology/Signs/Symptoms * Altered nutrition-related lab values r/t renal dysfunction a/e/b elevated BUN, Cre, BG; low Na, Hgb, Hct lab values (ongoing) Expected Outcomes/Goals PO intake provides >85% estimated nutritional needs, wt maintenance/skin integrity, nutrition-related labs WNL, normal GI function w/BM q1-3 days Dietitian Recommendations * Continue puree diet * If PO intakes improve, consider adding the renal restriction to diet * RD f/u on nutrition education Follow up High risk: f/u in 2-3 days GS, MPH, RD
--- NOTE | 2022-06-08 12:23 | NUR ---
Dietitian Recommendations * Continue puree diet * If PO intakes improve, consider adding the renal restriction to diet * RD f/u on nutrition education GS, MPH, RD Please refer to Nutrition F/U for further details. Thanks!
[2022-06-08] MEDS: INSULIN REGULAR, HUMAN 100 UNITS/ML, 3 ML VIAL (humuLIN R) SUBCUT PRN ×3 (12:30→20:36)
[2022-06-08] MEDS ORDERED: HEPARIN SODIUM,PORCINE 5,000 UNITS/ML VIAL MC ONE (12:45)
[2022-06-08] MEDS: ACETAMINOPHEN 500 MG TABLET PO PRN (16:23)
--- NOTE | 2022-06-08 16:30 | NUR ---
pain patient complaining of pain to knee. 05/14 requesting tylenol. repositioned patient with pillow support
--- NOTE | 2022-06-08 18:00 | NUR ---
wound care patient incontinent of bladder, provided silvia care, changed linens, wound care, cleansed with ns, applied moisture barrier cream, foam dressing and repositioned patient. provided pillow support.
[2022-06-08 18:33] VITALS: BP_SYST 144
--- NOTE | 2022-06-08 18:40 | NUR ---
nurse note patient in bed, respirations even, non labored, bed in low and locked position, call light within reach, bed alarm on. patient denies any pain or discomfort. family is bedside.
--- NOTE | 2022-06-08 19:19 | NUR ---
Closing note Provided SBAR to night RN. patient in bed, respirations even, non labored, bed in low and locked position, call light within reach, bed alarm on. Patient denies any pain or discomfort. Endorsed Photos of wounds to night RN. Endorsed care to night RN.
--- NOTE | 2022-06-08 19:35 | NUR ---
Opening note Received SBAR from GISELE Mclean. Patient is awake, AOx3, speaks sami and is resting in bed, no distress, denies pain. Nonlabored breathing on room air. IV to RFA is SL. Bed is locked in lowest position side rails up 3x, and bed alarm on. Updated board and call light w/in reach.
[2022-06-08 20:00] VITALS: BP_SYST 142
[2022-06-08] MEDS: INSULIN GLARGINE 100 UNITS/ML, 10 ML VIAL SUBCUT SCH (20:37)
--- NOTE | 2022-06-08 20:44 | NUR ---
MEDS, FINGERSTICK Scheduled meds given. Patient swallowed Lopressor tablet with water; reviewed side effects and she verbalized understanding. Fingerstick BS result was 277mg/dL and scheduled insulin/coverage given as ordered. , Leander is visiting at bedside.
--- NOTE | 2022-06-08 23:50 | NUR ---
wound care, patient care Patient was provided with partial bed bath. She voided and had BM; was provided with pericare and new pad, linen. Wound care to sacral-buttocks done and picture also taken. She tolerated.
[2022-06-09 01:31] VITALS: BP_SYST 175
--- NOTE | 2022-06-09 02:30 | NUR ---
rounds Patient resting with eyes closed, momentarily awake, reposition. She requested t.v. off, no further needs, wctm
[2022-06-09] MEDS: LEVOTHYROXINE SODIUM 0.088 MG TABLET PO SCH (06:41)
[2022-06-09] MEDS: ACETAMINOPHEN 500 MG TABLET PO PRN ×2 (06:41→20:33)
[2022-06-09 06:48] LABS: BASOPHILS % (AUTO) 0.4 % (0.0-2.0); EOSINOPHILS # (AUTO) 0.3 K/uL (0.0-0.4); EOSINOPHILS % (AUTO) 2.5 % (0.0-4.0); HEMATOCRIT 25.7 % (36-48); HEMOGLOBIN 8.7 g/dL (12.0-16.0); LYMPHOCYTES # (AUTO) 1.1 K/uL (1.0-5.5); LYMPHOCYTES % (AUTO) 10.3 % (20.5-51.5); MEAN CORPUSCULAR HEMOGLOBIN 30 pg (27-31); MEAN CORPUSCULAR HGB CONC 34 % (32-36); MEAN CORPUSCULAR VOLUME 88 fL (79.0-98.0); MONOCYTES # (AUTO) 0.8 K/uL (0.0-1.0); MONOCYTES % (AUTO) 7.6 % (1.7-9.3); NEUTROPHILS # (AUTO) 8.6 K/uL (1.8-7.7); NEUTROPHILS % (AUTO) 79.2 % (40.0-70.0); PLATELET COUNT (AUTO) 172 K/uL (130-430); RED BLOOD CELL COUNT(AUTO) 2.93 MIL/uL (4.2-6.2); RED CELL DISTRIBUTION WIDTH 14.7 % (9.0-15.0)
[2022-06-09 07:03] LABS: ANION GAP 6 (5-15); CALCIUM 8.3 mg/dL (8.4-11.0); CHLORIDE 100 mmol/L (98-107); CREATININE 2.42 mg/dL (0.55-1.30); GLUCOSE 172 mg/dL (70-99); UREA NITROGEN, BLOOD 27 mg/dL (8-21)
--- NOTE | 2022-06-09 07:30 | NUR ---
OPENING NOTE ASLEEP. NO SIGN OF DISTRESS. IV INTACT. TUNNEL CATHETER IN PLACE. SAFETY CHECKS DONE. CALL LIGHT AND THINGS NEEDED WITHIN REACH.
[2022-06-09 07:45] LABS: WHITE BLOOD COUNT (AUTO) 10.8 K/uL (4.8-10.8)
[2022-06-09 08:00] VITALS: BP_SYST 145
[2022-06-09] MEDS: CALCIUM ACETATE 667 MG CAP PO SCH ×3 (08:41→17:07)
[2022-06-09] MEDS: METOPROLOL TARTRATE 25 MG TABLET PO SCH ×2 (08:41→20:34)
[2022-06-09] MEDS: PANTOPRAZOLE SODIUM 40 MG TAB PO SCH (08:41)
--- NOTE | 2022-06-09 08:45 | NUR ---
MED PASS PATIENT WAS ABLE TO SWALLOW PILLS WHOLE. DENIES ANY PAIN. REPOSITIONED. SAFETY CHECKS DONE.
[2022-06-09 11:41] VITALS: BP_SYST 148
[2022-06-09] MEDS: INSULIN REGULAR, HUMAN 100 UNITS/ML, 3 ML VIAL (humuLIN R) SUBCUT PRN ×3 (11:54→20:40)
--- NOTE | 2022-06-09 12:00 | NUR ---
ROUNDS; BLOOD SUGAR CHECK BLOOD SUGAR OF 252 MG/DL. INSULIN COVERAGE GIVEN ORDERED. NO SHORTNESS OF BREATH OR PAIN. IV INTACT. SAFETY CHECKS DONE. CALL LIGHT WITHIN REACH.
--- NOTE | 2022-06-09 14:00 | NUR ---
ROUNDS ASLEEP. NO SIGN OF DISTRESS. SAFETY CHECKS DONE.
[2022-06-09 17:21] VITALS: BP_SYST 140
--- NOTE | 2022-06-09 18:58 | NUR ---
CLOSING NOTES ALL NEEDS MET THROUGHOUT SHIFT. NO COMPLAINS OF BACK PAIN. NO SIGN OF RESPIRATORY DISTRESS. SAFETY CHECKS DONE.
--- NOTE | 2022-06-09 19:25 | NUR ---
Opening note Received SBAR from GISELE Wong. Patient is awake, speaks armenian and is resting in bed, no distress. Nonlabored breathing on room air. IV to RFA is SL. is visiting at bedside. Dinner tray is at bedside and patient said she will try to eat more. asked if I can warm food and he can help her finish eating. Bed is locked in lowest position side rails up 3x, and bed alarm on. Updated board and call light w/in reach.
[2022-06-09 20:00] VITALS: BP_SYST 154
[2022-06-09] MEDS: INSULIN GLARGINE 100 UNITS/ML, 10 ML VIAL SUBCUT SCH (20:42)
--- NOTE | 2022-06-09 20:42 | NUR ---
MEDS, FINGERSTICK, TYLENOL Scheduled meds given. Patient swallowed Lopressor and Tylenol tablets with water; reviewed side effects and she verbalized understanding. Fingerstick BS result was 301mg/dL and scheduled insulin/coverage given as ordered. , Leander is still visiting.
[2022-06-10 00:10] VITALS: BP_SYST 148
[2022-06-10] MEDS: traMADol HCL HCL 50 MG TABLET (ULTRAM) PO PRN (03:13)
--- NOTE | 2022-06-10 03:14 | NUR ---
pain med Upon reposition/turn, patient reports moderate pain to left shoulder and lower back. Administered Ultram for moderate pain.
[2022-06-10 06:35] LABS: BASOPHILS % (AUTO) 0.2 % (0.0-2.0); EOSINOPHILS # (AUTO) 0.2 K/uL (0.0-0.4); EOSINOPHILS % (AUTO) 1.7 % (0.0-4.0); HEMOGLOBIN 8.6 g/dL (12.0-16.0); LYMPHOCYTES % (AUTO) 7.8 % (20.5-51.5); MEAN CORPUSCULAR HEMOGLOBIN 30 pg (27-31); MEAN CORPUSCULAR HGB CONC 35 % (32-36); MEAN CORPUSCULAR VOLUME 86 fL (79.0-98.0); MONOCYTES # (AUTO) 0.8 K/uL (0.0-1.0); MONOCYTES % (AUTO) 6.6 % (1.7-9.3); NEUTROPHILS # (AUTO) 10.7 K/uL (1.8-7.7); NEUTROPHILS % (AUTO) 83.7 % (40.0-70.0); PLATELET COUNT (AUTO) 169 K/uL (130-430); RED CELL DISTRIBUTION WIDTH 14.7 % (9.0-15.0); WHITE BLOOD COUNT (AUTO) 12.7 K/uL (4.8-10.8)
[2022-06-10] MEDS: LEVOTHYROXINE SODIUM 0.088 MG TABLET PO SCH (06:46)
[2022-06-10] MEDS: INSULIN REGULAR, HUMAN 100 UNITS/ML, 3 ML VIAL (humuLIN R) SUBCUT PRN ×3 (06:49→20:41)
[2022-06-10 06:52] LABS: ANION GAP 7 (5-15); CALCIUM 8.4 mg/dL (8.4-11.0); CHLORIDE 98 mmol/L (98-107); CREATININE 2.79 mg/dL (0.55-1.30); GLUCOSE 183 mg/dL (70-99); UREA NITROGEN, BLOOD 37 mg/dL (8-21)
--- NOTE | 2022-06-10 07:00 | NUR ---
closing note Scheduled meds given. Patient swallowed with water; Fingerstick BS result was 166 mg/dL and covered per sliding scale. Patient had BM and she was provided w/pericare, new pad. will endorse care
--- NOTE | 2022-06-10 07:10 | NUR ---
OPENING NOTE RECEIVED SBAR FROM NIGHT RN. PATIENT IN BED, RESPIRATIONS EVEN, NON LABORED, BED IN LOW AND LOCKED POSITION , CALL LIGHT WITHIN REACH, BED ALARM ON
[2022-06-10] MEDS ORDERED: HEPARIN SODIUM,PORCINE 5,000 UNITS/ML VIAL IV ONE (08:15)
[2022-06-10] MEDS: CALCIUM ACETATE 667 MG CAP PO SCH ×3 (08:32→17:58)
[2022-06-10] MEDS: METOPROLOL TARTRATE 25 MG TABLET PO SCH ×2 (08:32→20:39)
[2022-06-10] MEDS: PANTOPRAZOLE SODIUM 40 MG TAB PO SCH (08:32)
[2022-06-10 10:26] VITALS: BP_SYST 155
[2022-06-10 11:45] VITALS: BP_SYST 143
--- NOTE | 2022-06-10 14:10 | NUR ---
DIALYSIS DIALYSIS COMPLETE, PATIENT DENIES ANY PAIN OR DISCOMFORT
--- NOTE | 2022-06-10 15:27 | NUR ---
MD DR SHIPMAN BEDSIDE EXAMINING PATIENT PER GIVE PATIENT CHICKEN BROTH TO DRINK
[2022-06-10] MEDS: ACETAMINOPHEN 500 MG TABLET PO PRN (15:30)
--- NOTE | 2022-06-10 15:53 | NUR ---
PATIENT WAS UNAVAILABLE FOR PT TREATMENT PATIENT WAS ON HD.
--- NOTE | 2022-06-10 16:11 | NUR ---
WOUND CARE PATIENT INCONTINENT OF BOWEL, PROVIDED CLINT CARE, CHANGED LINENS, REPOSITIONED WITH PILLOW SUPPORT WOUND CARE, SEE MST SHIFT ASSESSMENT
[2022-06-10 16:15] VITALS: BP_SYST 147
--- NOTE | 2022-06-10 16:58 | NUR ---
NURSE NOTE PATIENT IN BED, 2L O2 NASAL CANULA, BED IN LOW AND LOCKED POSITION, CALL LIGHT WITHIN REACH, BED ALARM ON, OSUNA DRAINING BY GRAVITY, IVF'S , LIPIDS AND TPN RUNNING DIRECTED. PATIENT ALERT AND ABLE TO COMMUNICATE AOX2 Addendum: 06/10/22 at 1700 by Caridad Gonzalez RN DISREGARD ABOVE NOTE ENTERED ON WRONG PATIENT
--- NOTE | 2022-06-10 17:01 | NUR ---
NURSE NOTE PATIENT IN BED, RESPIRATIONS EVEN, NON LABORED, BED IN LOW AND LOCKED POSITION, CALL LIGHT WITHIN REACH, SOFYA ALARM ON. PATIENT IS BEDSIDE
[2022-06-10] MEDS: EPOETIN ALFA-EPBX 3,000 UNITS/ML VIAL SUBCUT SCH (17:58)
--- NOTE | 2022-06-10 19:28 | NUR ---
CLOSING NOTE PROVIDED SBAR TO NIGHT RN. PATIENT IN BED, BEDSIDE. BED IN LOW AND LOCKED POSITION CALL LIGHT WITHIN REACH, BED ALARM ON. RESPIRATIONS EVEN, NON LABORED. ENDORSED CARE TO NIGHT RN.
--- NOTE | 2022-06-10 19:30 | NUR ---
OPENING NOTE PT LYING IN BED. AT BEDSIDE. NO S/S OF ACUTE DISTRESS OR PAIN. BREATHING EVEN AND NONLABORED, SAFETY CHECKS IN PLACE. BED ALARM ON.
[2022-06-10 20:00] VITALS: BP_SYST 156
[2022-06-10] MEDS: INSULIN GLARGINE 100 UNITS/ML, 10 ML VIAL SUBCUT SCH (20:40)
[2022-06-11] VITALS: BP_SYST 150
--- NOTE | 2022-06-11 02:30 | NUR ---
ROUNDING NOTE PT LYING IN BED. BREATHING EVEN AND NONLABORED. NO PAIN REPORTED. SAFETY CHECKS IN PLACE. BED ALARM ON.
[2022-06-11] MEDS: LEVOTHYROXINE SODIUM 0.088 MG TABLET PO SCH (06:13)
--- NOTE | 2022-06-11 06:50 | NUR ---
CLOSING NOTE PT LYING IN BED. BREATHING EVEN AND NONLABORED. MORNING GLUCOSE 135mg/dL. NO S/S OF ACUTE DISTRESS. SAFETY CHECKS IN PLACE. BED ALARM ON.
--- NOTE | 2022-06-11 07:17 | NUR ---
OPENING NOTE RECEIVED SBAR FROM NIGHT RN. PATIENT IN BED, RESPIRATIONS EVEN, NON LABORED, BED IN LOW AND LOCKED POSITION, CALL LIGHT WITHIN REACH. BED ALARM ON
[2022-06-11 08:00] VITALS: BP_SYST 166
[2022-06-11] MEDS: CALCIUM ACETATE 667 MG CAP PO SCH ×3 (08:53→17:32)
[2022-06-11] MEDS: PANTOPRAZOLE SODIUM 40 MG TAB PO SCH (08:53)
[2022-06-11] MEDS: METOPROLOL TARTRATE 25 MG TABLET PO SCH ×2 (08:58→21:00)
[2022-06-11] MEDS: traMADol HCL HCL 50 MG TABLET (ULTRAM) PO PRN (09:06)
--- NOTE | 2022-06-11 10:19 | NUR ---
NURSE NOTE PAGED DR ROJAS REGARDING PATIENTS ELEVATED HR. SPOKE WITH SALOME
--- NOTE | 2022-06-11 10:51 | NUR ---
NURSE NOTE PATIENT COMPLAINING OF HEADACHE, VS WNL. HR IS BACK TO BASELINE. WILL PROVIDE MEDICATION
[2022-06-11] MEDS: ACETAMINOPHEN 500 MG TABLET PO PRN (10:53)
[2022-06-11 11:49] VITALS: BP_SYST 150
[2022-06-11] MEDS: INSULIN REGULAR, HUMAN 100 UNITS/ML, 3 ML VIAL (humuLIN R) SUBCUT PRN (12:10)
[2022-06-11 15:33] LABS: BASOPHILS # (AUTO) 0.1 K/uL (0.0-0.2); BASOPHILS % (AUTO) 0.6 % (0.0-2.0); EOSINOPHILS # (AUTO) 0.2 K/uL (0.0-0.4); EOSINOPHILS % (AUTO) 1.5 % (0.0-4.0); HEMATOCRIT 25.9 % (36-48); HEMOGLOBIN 8.6 g/dL (12.0-16.0); LYMPHOCYTES % (AUTO) 8.5 % (20.5-51.5); MEAN CORPUSCULAR HEMOGLOBIN 30 pg (27-31); MEAN CORPUSCULAR HGB CONC 33 % (32-36); MEAN CORPUSCULAR VOLUME 89 fL (79.0-98.0); MONOCYTES # (AUTO) 0.8 K/uL (0.0-1.0); NEUTROPHILS # (AUTO) 9.9 K/uL (1.8-7.7); NEUTROPHILS % (AUTO) 82.4 % (40.0-70.0); PLATELET COUNT (AUTO) 156 K/uL (130-430); RED BLOOD CELL COUNT(AUTO) 2.91 MIL/uL (4.2-6.2); RED CELL DISTRIBUTION WIDTH 15.5 % (9.0-15.0); WHITE BLOOD COUNT (AUTO) 12.1 K/uL (4.8-10.8)
--- NOTE | 2022-06-11 15:46 | NUR ---
NURSE NOTE PATIENT IN BED, RESPIRATIONS EVEN, NON LABORED, BED IN LOW AND LOCKED POSITION, CALL LIGHT WITHIN REACH, BED ALARM ON. DENIES ANY PAIN OR DISCOMFORT
[2022-06-11 17:01] VITALS: BP_SYST 111
--- NOTE | 2022-06-11 17:39 | NUR ---
INFORMED DR ROJAS ( ON THE FLOOR) THAT PATIENT IS NOT RESPONSIVE BEFORE, UNABLE TO FOLLOW COMMANDS. NEW ORDERS RECEIVED
--- NOTE | 2022-06-11 17:50 | NUR ---
INSULIN DID NOT PROVIDE INSULIN FOR COVERAGE, PATIENT IS NOT ABLE TO TAKE PO AT THIS TIME DUE TO CHANGE OF CONDITION.
--- NOTE | 2022-06-11 19:25 | NUR ---
CLOSING NOTE PROVIDED SBAR TO NIGHT RN. PATIENT IN BED, RESPIRATIONS EVEN, NON LABORED, BED IN LOW AND LOCKED POSITION, CALL LIGHT WITHIN REACH, BED ALARM ON. ENDORSED TO NIGHT RN STRAIGHT CATH URINE COLLECTION FOR URINE CULTURE. ENDORSED CARE TO NIGHT RN.
--- NOTE | 2022-06-11 19:40 | NUR ---
OPENING NOTE PT LYING IN BED. BEDSIDE.NO ACUTE DISTRESS OR PAIN. BREATHING EVEN AND NONLABORED. BED ALARM ON. SAFETY CHECKS IN PLACE. BED LOWEST POSITION.
[2022-06-11 20:00] VITALS: BP_SYST 131
[2022-06-11] MEDS: INSULIN GLARGINE 100 UNITS/ML, 10 ML VIAL SUBCUT SCH (21:00)
--- NOTE | 2022-06-12 00:50 | NUR ---
ROUNDING NOTE PT URINATED AND HAD BOWEL MOVEMENT ON THE PAD. CHANGED ALL BED SHEET AND GOWN. PERINEAL CARE GIVEN. BED ALARM ON. SAFETY CHECKS IN PLACE. CALL LIGHT IN REACH.
[2022-06-12 01:55] VITALS: BP_SYST 130
[2022-06-12] MEDS: ONDANSETRON HCL 4 MG/2 ML VIAL IVP PRN (02:27)
[2022-06-12 02:37] VITALS: BP_SYST 131
[2022-06-12] MEDS: INSULIN REGULAR, HUMAN 100 UNITS/ML, 3 ML VIAL (humuLIN R) SUBCUT PRN ×2 (06:31→20:57)
[2022-06-12] MEDS: LEVOTHYROXINE SODIUM 0.088 MG TABLET PO SCH (06:32)
--- NOTE | 2022-06-12 06:43 | NUR ---
CLOSING NOTE PT LYING IN BED. BREATHING EVEN AND NONLABORED. NO S/S ACUTE DISTRESS OR PAIN. SAFETY CHECKS IN PLACE. BED LOWEST POSITION AND ALARM ON. CALL LIGHT IN REACH.
[2022-06-12 07:42] VITALS: BP_SYST 133
[2022-06-12] MEDS: CALCIUM ACETATE 667 MG CAP PO SCH ×3 (08:00→17:22)
[2022-06-12] MEDS: METOPROLOL TARTRATE 25 MG TABLET PO SCH ×2 (08:06→20:25)
[2022-06-12] MEDS: PANTOPRAZOLE SODIUM 40 MG TAB PO SCH (08:06)
[2022-06-12] MEDS: HYDROcodone/ACETAMIN 5-325 MG TAB (NORCO/ VICODIN) PO PRN ×2 (09:01→21:19)
[2022-06-12 11:12] VITALS: BP_SYST 156
--- NOTE | 2022-06-12 11:54 | NUR ---
RN MEDICALLY CLEARED PATIENT FOR PT TREATMENT, HOWEVER PATIENT REFUSED D/T REPORTS OF 9/10 PAIN IN ABD.
[2022-06-12] MEDS ORDERED: ALTEPLASE 2 MG VIAL MC ONE (13:00)
--- NOTE | 2022-06-12 13:55 | NUR ---
Nutrition F/U RD reviewed pts current EMR including diet hx, physician notes, nursing notes, pertinent labs/meds/procedures, care trends and care activity. Short note d/t high workload Subjective Information RD rounded to pt room and s/w . He said that pt is not really eating well and that she is scheduled for a swallow eval today. He said pt has HD yesterday. Per LOS 06/12, pt is pending SNF placement. does not think is having any GI symptoms at this time. Current Diet Order/Nutrition Support NPO pending swallow x 1 day % PO intake NPO Last BM 06/12 x 1 Estimated Energy Expenditure (kcals/day) [id number] (25-30 kcal/kg for normal BMI, CKD no HD) Estimated Protein Required (g/day) 35-47 (.6-.8 g/kg for CKD no HD) Estimated Fluid Required (l/day) per MD Problem/Etiology/Signs/Symptoms * Altered nutrition-related lab values r/t renal dysfunction a/e/b elevated BUN, Cre, BG; low Na, Hgb, Hct lab values (ongoing) Expected Outcomes/Goals PO intake provides >85% estimated nutritional needs, wt maintenance/skin integrity, nutrition-related labs WNL, normal GI function w/BM q1-3 days Dietitian Recommendations * Advance diet, if DISTRICT CUSTOMS DIRECTOR agrees * RD f/u on nutrition education Follow up *High risk: see pt in 2-3 days GS, MPH, RD
--- NOTE | 2022-06-12 13:56 | NUR ---
Dietitian Recommendations * Advance diet, if APPRENTICE ELECTRICIAN agrees * RD f/u on nutrition education GS, MPH, RD Please refer to Nutrition F/U for further details. Thanks!
--- NOTE | 2022-06-12 17:16 | NUR ---
ST EVALUATION COMPLETED. ST TX NOT INDICATED AT THIS TIME. RECOMMEND PO DIET OF PUREE AND NECTAR THICK LIQUIDS. 1:1 FEEDER AND FULL ASPIRATION PRECAUTIONS.
[2022-06-12] MEDS: EPOETIN ALFA-EPBX 3,000 UNITS/ML VIAL SUBCUT SCH (17:21)
[2022-06-12 17:23] VITALS: BP_SYST 150
[2022-06-12 20:00] VITALS: BP_SYST 101
[2022-06-12] MEDS: INSULIN GLARGINE 100 UNITS/ML, 10 ML VIAL SUBCUT SCH (20:57)
[2022-06-13] VITALS: BP_SYST 130
[2022-06-13] MEDS: INSULIN REGULAR, HUMAN 100 UNITS/ML, 3 ML VIAL (humuLIN R) SUBCUT PRN ×2 (06:23→11:45)
[2022-06-13] MEDS: LEVOTHYROXINE SODIUM 0.088 MG TABLET PO SCH (06:35)
[2022-06-13 07:40] VITALS: BP_SYST 157
--- NOTE | 2022-06-13 07:40 | NUR ---
OPENING NOTE Received patient laying in bed, awake. Patient A/O x4, Georgian/Urdu speaking. Patient's breathing is even and unlabored on RA. Patient on bedrest. IV to Right wrist 22 g, patent on SL. Bed is locked in lowest position, call light within reach. All needs met, will continue to monitor.
[2022-06-13] MEDS: CALCIUM ACETATE 667 MG CAP PO SCH ×3 (08:51→17:53)
[2022-06-13] MEDS: METOPROLOL TARTRATE 25 MG TABLET PO SCH (08:51)
[2022-06-13] MEDS: PANTOPRAZOLE SODIUM 40 MG TAB PO SCH (08:52)
[2022-06-13] MEDS: cloNIDine HCL 0.1 MG/24 HR PATCH.TDWK TD SCH (08:53)
[2022-06-13] MEDS: ACETAMINOPHEN 500 MG TABLET PO PRN (08:53)
[2022-06-13 11:00] VITALS: BP_SYST 114
--- NOTE | 2022-06-13 12:10 | NUR ---
ROUNDS: Patient laying in bed, awake. Patient's breathing is even and unlabored on RA. Bed is locked in lowest position, call light within reach. All needs met, will continue to monitor.
[2022-06-13] MEDS: HYDROcodone/ACETAMIN 5-325 MG TAB (NORCO/ VICODIN) PO PRN (14:21)
--- NOTE | 2022-06-13 15:49 | NUR ---
REPORT FOR NOELLE SNIDER Gave report to ANIKET Srivastava on patient status for transfer. Patient to transfer at 1700 via [facility] transport. Patient signed consent and is aware of the transfer.
[2022-06-13 15:59] VITALS: BP_SYST 114
[2022-06-13 17:04] VITALS: BP_SYST 133
--- NOTE | 2022-06-13 17:56 | NUR ---
[facility] Placed a call to [facility] due to transport to be at 1700. Per Meenakshi at [facility] the transportation is running behind and they should be here in 60mins. Addendum: 06/13/22 at 1758 by Janelle Wood LVN Family is aware.
--- NOTE | 2022-06-13 19:18 | NUR ---
CLOSING NOTE Patient laying in bed, awake with at bedside. Patient A/O x4, French/Welsh speaking. Patient's breathing is even and unlabored on RA. Patient on bedrest. IV to Right wrist 22 g, patent on SL. Patient to transfer to [facility] awaiting transportation, transport is running behind schedule. Bed is locked in lowest position, call light within reach. All needs met, will endorse to nightshift nurse.
--- NOTE | 2022-06-13 19:30 | NUR ---
D/C Patient Patient given medication reconciliation form and D/C instructions. Exit Care provided. Report given to ANIKET Srivastava at [facility]. Patient verbalized understanding. MD Archer discussed with patient the results and treatment provided. Transportation took patient to facility. Patient in stable condition, ID band removed. IV catheter removed, intact and dressing applied, no active bleeding. Rx of given. Patient educated on pain management. All belongings sent with patient.
== END 2022-06-13 19:45 | DRG 673 ==
LOC: SED 10:16 → STU 14:37
PROVIDERS: ADMIT Specialist; ATTEND Specialist
PROC: 30233N1 Transfusion of Nonautologous Red Blood Cells into Peripheral Vein, Percutaneous Approach (ICD-10-PCS; 2022-05-31)
PROC: 0DB68ZX Excision of Stomach, Via Natural or Artificial Opening Endoscopic, Diagnostic (ICD-10-PCS; 2022-06-02)
PROC: 0DB58ZX Excision of Esophagus, Via Natural or Artificial Opening Endoscopic, Diagnostic (ICD-10-PCS; 2022-06-02)
PROC: 0DB98ZX Excision of Duodenum, Via Natural or Artificial Opening Endoscopic, Diagnostic (ICD-10-PCS; principal; 2022-06-02 07:30)
PROC: 0DBK8ZZ Excision of Ascending Colon, Via Natural or Artificial Opening Endoscopic (ICD-10-PCS; 2022-06-03)
PROC: 0DBL8ZZ Excision of Transverse Colon, Via Natural or Artificial Opening Endoscopic (ICD-10-PCS; 2022-06-03)
PROC: 0DBH8ZZ Excision of Cecum, Via Natural or Artificial Opening Endoscopic (ICD-10-PCS; 2022-06-03)
PROC: 0DBM8ZZ Excision of Descending Colon, Via Natural or Artificial Opening Endoscopic (ICD-10-PCS; 2022-06-03)
PROC: 0DBN8ZZ Excision of Sigmoid Colon, Via Natural or Artificial Opening Endoscopic (ICD-10-PCS; 2022-06-03)
PROC: 0JH63XZ Insertion of Tunneled Vascular Access Device into Chest Subcutaneous Tissue and Fascia, Percutaneous Approach (ICD-10-PCS; 2022-06-04)
PROC: 02HV33Z Insertion of Infusion Device into Superior Vena Cava, Percutaneous Approach (ICD-10-PCS; 2022-06-04)
PROC: B518ZZA Fluoroscopy of Superior Vena Cava, Guidance (ICD-10-PCS; 2022-06-04)
PROC: B548ZZA Ultrasonography of Superior Vena Cava, Guidance (ICD-10-PCS; 2022-06-04)
PROC: 5A1D70Z Performance of Urinary Filtration, Intermittent, Less than 6 Hours Per Day (ICD-10-PCS; 2022-06-04)
PROC: 5A1D70Z Performance of Urinary Filtration, Intermittent, Less than 6 Hours Per Day (ICD-10-PCS; 2022-06-08)
PROC: 5A1D70Z Performance of Urinary Filtration, Intermittent, Less than 6 Hours Per Day (ICD-10-PCS; 2022-06-10)
PROC: 5A1D70Z Performance of Urinary Filtration, Intermittent, Less than 6 Hours Per Day (ICD-10-PCS; 2022-06-12)
DX: N17.0 Acute kidney failure with tubular necrosis (principal); E43 Unspecified severe protein-calorie malnutrition; K29.71 Gastritis, unspecified, with bleeding; K29.81 Duodenitis with bleeding; D62 Acute posthemorrhagic anemia; N39.0 Urinary tract infection, site not specified; Q60.0 Renal agenesis, unilateral; I12.9 Hypertensive chronic kidney disease with stage 1 through stage 4 chronic kidney disease, or unspecified chronic kidney disease; N18.4 Chronic kidney disease, stage 4 (severe); E78.5 Hyperlipidemia, unspecified; E11.51 Type 2 diabetes mellitus with diabetic peripheral angiopathy without gangrene; E11.319 Type 2 diabetes mellitus with unspecified diabetic retinopathy without macular edema; I48.91 Unspecified atrial fibrillation; K44.9 Diaphragmatic hernia without obstruction or gangrene; N20.0 Calculus of kidney; I25.10 Atherosclerotic heart disease of native coronary artery without angina pectoris; D63.1 Anemia in chronic kidney disease; E11.22 Type 2 diabetes mellitus with diabetic chronic kidney disease; B96.20 Unspecified Escherichia coli [E. coli] as the cause of diseases classified elsewhere; F17.200 Nicotine dependence, unspecified, uncomplicated; K20.90 Esophagitis, unspecified without bleeding; K29.80 Duodenitis without bleeding; K57.30 Diverticulosis of large intestine without perforation or abscess without bleeding; K63.5 Polyp of colon; K64.4 Residual hemorrhoidal skin tags; Z90.49 Acquired absence of other specified parts of digestive tract; Z79.4 Long term (current) use of insulin; Z79.899 Other long term (current) drug therapy; Z79.82 Long term (current) use of aspirin
CPT/HCPCS: 36415; 43239; 45384; 45385; 70450-TC; 71045; 76000; 76376; 76700-TC; 76770; 80048; 80053; 80074; 81000; 82272; 83690; 83970; 84100; 84478; 85025; 85610-TC; 86886; 86900; 86901; 86920; 87040; 87081; 87086; 88305; 88312; 88313; 92610-GN; 93005; 96361; 96365; 96375; 97110-GP; 97112-GP; 97530-GP; 99285; C1894; G0378; J0696; J1644; J1815; J1885; J2185; J2250; J2405; J2543; J2704; J2997; J3010; J3465; J3490; J7060; P9021; Q5106

== ENCOUNTER 2022-09-19 00:12 | Inpatient (IN) | payer OTHER ==
[~2022-09-19] VITALS: Ht 175.3 cm; Wt 54.0 kg
[~2022-09-19 00:12] MED LIST changes: +ASA81 PO; +ATOR20TA64 PO; -BIOT1CAP3 PO; +INSU100I26 SQ; +LEVO88TA5 PO; -LORA-258 PO; -MERO500P IV
[2022-09-19 00:19] VITALS: BP_SYST 179
[2022-09-19] MEDS ORDERED: NACL 0.9% 1,000 ML IV ONE (00:45)
[2022-09-19] MEDS ORDERED: ONDANSETRON HCL 4 MG/2 ML VIAL IVP ONE (00:45)
[2022-09-19 01:33] LABS: BASOPHILS # (AUTO) 0.1 K/uL (0.0-0.2); BASOPHILS % (AUTO) 0.5 % (0.0-2.0); EOSINOPHILS # (AUTO) 0.1 K/uL (0.0-0.4); EOSINOPHILS % (AUTO) 0.6 % (0.0-4.0); HEMATOCRIT 30.1 % (36-48); HEMOGLOBIN 9.9 g/dL (12.0-16.0); LYMPHOCYTES # (AUTO) 0.6 K/uL (1.0-5.5); LYMPHOCYTES % (AUTO) 3.5 % (20.5-51.5); MEAN CORPUSCULAR HEMOGLOBIN 30 pg (27-31); MEAN CORPUSCULAR HGB CONC 33 % (32-36); MEAN CORPUSCULAR VOLUME 91 fL (79.0-98.0); MONOCYTES % (AUTO) 5.9 % (1.7-9.3); NEUTROPHILS # (AUTO) 15.8 K/uL (1.8-7.7); NEUTROPHILS % (AUTO) 89.5 % (40.0-70.0); PLATELET COUNT (AUTO) 213 K/uL (130-430); RED BLOOD CELL COUNT(AUTO) 3.29 MIL/uL (4.2-6.2); RED CELL DISTRIBUTION WIDTH 15.7 % (9.0-15.0); WHITE BLOOD COUNT (AUTO) 17.7 K/uL (4.8-10.8)
[2022-09-19 01:40] LABS: ALANINE AMINOTRANSFERASE 22 U/L (12-78); ALBUMIN 2.7 g/dL (3.4-4.8); ANION GAP 7 (5-15); ASPARTATE AMINOTRANSFERASE 24 U/L (10-37); CALCIUM 9.7 mg/dL (8.4-11.0); CHLORIDE 101 mmol/L (98-107); CREATININE 2.27 mg/dL (0.55-1.30); GLUCOSE 329 mg/dL (70-99); TOTAL BILIRUBIN 0.3 mg/dL (0.0-1.0); UREA NITROGEN, BLOOD 51 mg/dL (8-21)
[2022-09-19 01:43] LABS: LIPASE 609 U/L (73-393)
[2022-09-19 01:56] LABS: BILIRUBIN,URINE NEGATIVE (NEGATIVE); BLOOD, URINE 3+ (NEGATIVE); CLARITY/URINE CLOUDY (CLEAR); COLOR,URINE YELLOW (YELLOW); GLUCOSE,URINE TRACE (NEGATIVE); KETONES,URINE NEGATIVE (NEGATIVE); LEUKOCYTE ESTERASE ,URINE 3+ (NEGATIVE); NITRITE, URINE NEGATIVE (NEGATIVE); PROTEIN URINE 3+ (NEGATIVE); UROBILINOGEN,URINE 0.2 (0.2-1.0)
[2022-09-19 02:23] LABS: BACTERIA,URINE MANY /HPF (None Seen); WBC,URINE >100 /HPF (0-3)
[2022-09-19] MEDS ORDERED: cefTRIAXone 1 GM in D5W 50 ML IV ONE (02:30)
[2022-09-19] MEDS ORDERED: cefTRIAXone 1 GM VIAL ONE (02:43)
[2022-09-19] MEDS ORDERED: ONDANSETRON HCL 4 MG/2 ML VIAL IVP PRN (03:00)
[2022-09-19 04:24] VITALS: BP_SYST 145
[2022-09-19 08:00] VITALS: BP_SYST 155
[2022-09-19] MEDS ORDERED: cefTRIAXone 1 GM in D5W 50 ML IV SCH (09:00)
[2022-09-19 11:13] VITALS: BP_SYST 137
[2022-09-19 12:00] VITALS: BP_SYST 137
[2022-09-19] MEDS: cefTRIAXone 1 GM in D5W 50 ML IV SCH (13:16)
[2022-09-19] MEDS ORDERED: DOCUSATE SODIUM 100 MG CAPSULE PO PRN (14:15)
[2022-09-19] MEDS ORDERED: APIXABAN 2.5 MG TABLET PO ONE (14:30)
[2022-09-19] MEDS ORDERED: INSULIN REGULAR, HUMAN 100 UNITS/ML, 3 ML VIAL (humuLIN R) SUBCUT PRN (16:30)
[2022-09-19] MEDS: hydrALAZINE HCL 25 MG TABLET PO SCH ×2 (17:10→21:31)
[2022-09-19 17:12] VITALS: BP_SYST 130
[2022-09-19] MEDS: METOPROLOL TARTRATE 25 MG TABLET PO SCH (21:28)
[2022-09-19] MEDS: LOSARTAN POTASSIUM 50 MG TABLET (COZAAR) PO SCH (21:29)
[2022-09-19] MEDS: APIXABAN 2.5 MG TABLET PO SCH (21:30)
[2022-09-20 00:35] VITALS: BP_SYST 142
[2022-09-20 04:00] VITALS: BP_SYST 144
[2022-09-20 05:44] LABS: BASOPHILS % (AUTO) 0.2 % (0.0-2.0); EOSINOPHILS # (AUTO) 0.1 K/uL (0.0-0.4); EOSINOPHILS % (AUTO) 0.7 % (0.0-4.0); HEMATOCRIT 28.4 % (36-48); HEMOGLOBIN 9.3 g/dL (12.0-16.0); LYMPHOCYTES # (AUTO) 1.4 K/uL (1.0-5.5); LYMPHOCYTES % (AUTO) 8.4 % (20.5-51.5); MEAN CORPUSCULAR HEMOGLOBIN 30 pg (27-31); MEAN CORPUSCULAR HGB CONC 33 % (32-36); MEAN CORPUSCULAR VOLUME 93 fL (79.0-98.0); MONOCYTES # (AUTO) 1.3 K/uL (0.0-1.0); MONOCYTES % (AUTO) 7.8 % (1.7-9.3); NEUTROPHILS # (AUTO) 13.4 K/uL (1.8-7.7); NEUTROPHILS % (AUTO) 82.9 % (40.0-70.0); PLATELET COUNT (AUTO) 207 K/uL (130-430); RED BLOOD CELL COUNT(AUTO) 3.07 MIL/uL (4.2-6.2); WHITE BLOOD COUNT (AUTO) 16.1 K/uL (4.8-10.8)
[2022-09-20 06:11] LABS: ANION GAP 7 (5-15); CHLORIDE 106 mmol/L (98-107); CREATININE 2.65 mg/dL (0.55-1.30); GLUCOSE 157 mg/dL (70-99); UREA NITROGEN, BLOOD 54 mg/dL (8-21)
[2022-09-20] MEDS: LEVOTHYROXINE SODIUM 0.088 MG TABLET PO SCH (06:38)
[2022-09-20] MEDS: METOPROLOL TARTRATE 25 MG TABLET PO SCH ×2 (09:00→21:13)
[2022-09-20] MEDS: APIXABAN 2.5 MG TABLET PO SCH ×2 (09:00→21:15)
[2022-09-20] MEDS: LOSARTAN POTASSIUM 50 MG TABLET (COZAAR) PO SCH ×2 (09:00→21:14)
[2022-09-20] MEDS: hydrALAZINE HCL 25 MG TABLET PO SCH ×3 (09:00→21:13)
[2022-09-20 11:26] VITALS: BP_SYST 151
[2022-09-20] MEDS: ASPIRIN 81 MG TAB.CHEW PO SCH (12:45)
[2022-09-20] MEDS: GLIMEPIRIDE 2 MG TABLET PO SCH (12:45)
[2022-09-20] MEDS: ATORVASTATIN 20 MG TABLET PO SCH (12:46)
[2022-09-20] MEDS: INSULIN LISPRO SLIDING SCALE 100 UNITS/ML, 3 ML VIAL (humaLOG) SUBCUT PRN ×3 (12:47→21:26)
[2022-09-20] MEDS: cefTRIAXone 1 GM in D5W 50 ML IV SCH (12:53)
[2022-09-20 15:29] VITALS: BP_SYST 95
[2022-09-20 20:00] VITALS: BP_SYST 137
[2022-09-21 00:10] VITALS: BP_SYST 107
[2022-09-21] MEDS: INSULIN LISPRO SLIDING SCALE 100 UNITS/ML, 3 ML VIAL (humaLOG) SUBCUT PRN ×4 (06:32→21:13)
[2022-09-21] MEDS: LEVOTHYROXINE SODIUM 0.088 MG TABLET PO SCH (06:34)
[2022-09-21 08:00] VITALS: BP_SYST 112; BP_SYST 116
[2022-09-21] MEDS: hydrALAZINE HCL 25 MG TABLET PO SCH ×3 (09:00→21:22)
[2022-09-21] MEDS: METOPROLOL TARTRATE 25 MG TABLET PO SCH ×2 (09:00→21:22)
[2022-09-21] MEDS: LOSARTAN POTASSIUM 50 MG TABLET (COZAAR) PO SCH ×2 (09:00→21:22)
[2022-09-21] MEDS: BALSAM PERU/CASTOR OIL 56.7 GM OINT...G. TP SCH (09:37)
[2022-09-21] MEDS: ASPIRIN 81 MG TAB.CHEW PO SCH (09:37)
[2022-09-21] MEDS: GLIMEPIRIDE 2 MG TABLET PO SCH (09:37)
[2022-09-21] MEDS: ATORVASTATIN 20 MG TABLET PO SCH (09:38)
[2022-09-21] MEDS: APIXABAN 2.5 MG TABLET PO SCH ×2 (09:39→21:24)
[2022-09-21 11:22] VITALS: BP_SYST 137
[2022-09-21 12:01] LABS: BASOPHILS % (AUTO) 0.4 % (0.0-2.0); EOSINOPHILS # (AUTO) 0.1 K/uL (0.0-0.4); EOSINOPHILS % (AUTO) 1.4 % (0.0-4.0); HEMATOCRIT 27.8 % (36-48); HEMOGLOBIN 9.4 g/dL (12.0-16.0); LYMPHOCYTES % (AUTO) 9.3 % (20.5-51.5); MEAN CORPUSCULAR HEMOGLOBIN 31 pg (27-31); MEAN CORPUSCULAR HGB CONC 34 % (32-36); MEAN CORPUSCULAR VOLUME 92 fL (79.0-98.0); MONOCYTES # (AUTO) 0.8 K/uL (0.0-1.0); MONOCYTES % (AUTO) 7.7 % (1.7-9.3); NEUTROPHILS # (AUTO) 8.6 K/uL (1.8-7.7); NEUTROPHILS % (AUTO) 81.2 % (40.0-70.0); PLATELET COUNT (AUTO) 197 K/uL (130-430); RED BLOOD CELL COUNT(AUTO) 3.01 MIL/uL (4.2-6.2); WHITE BLOOD COUNT (AUTO) 10.6 K/uL (4.8-10.8)
[2022-09-21 12:18] LABS: ALANINE AMINOTRANSFERASE 20 U/L (12-78); ALBUMIN 2.1 g/dL (3.4-4.8); ANION GAP 8 (5-15); ASPARTATE AMINOTRANSFERASE 20 U/L (10-37); CALCIUM 8.5 mg/dL (8.4-11.0); CHLORIDE 100 mmol/L (98-107); CREATININE 2.86 mg/dL (0.55-1.30); GLUCOSE 340 mg/dL (70-99); TOTAL BILIRUBIN 0.2 mg/dL (0.0-1.0); UREA NITROGEN, BLOOD 59 mg/dL (8-21)
[2022-09-21] MEDS: cefTRIAXone 1 GM in D5W 50 ML IV SCH (12:44)
[2022-09-21 15:19] VITALS: BP_SYST 113
[2022-09-21] MEDS ORDERED: MEROPENEM 1 GM in NS 100 ML IV ONE (17:00)
[2022-09-21 20:00] VITALS: BP_SYST 137
[2022-09-22] MEDS: LEVOTHYROXINE SODIUM 0.088 MG TABLET PO SCH (06:31)
[2022-09-22] MEDS: INSULIN LISPRO SLIDING SCALE 100 UNITS/ML, 3 ML VIAL (humaLOG) SUBCUT PRN ×3 (06:35→17:51)
[2022-09-22 08:00] VITALS: BP_SYST 125
[2022-09-22 08:04] LABS: BASOPHILS % (AUTO) 0.6 % (0.0-2.0); EOSINOPHILS # (AUTO) 0.3 K/uL (0.0-0.4); EOSINOPHILS % (AUTO) 3.6 % (0.0-4.0); HEMATOCRIT 26.7 % (36-48); HEMOGLOBIN 8.9 g/dL (12.0-16.0); LYMPHOCYTES # (AUTO) 1.2 K/uL (1.0-5.5); LYMPHOCYTES % (AUTO) 15.1 % (20.5-51.5); MEAN CORPUSCULAR HEMOGLOBIN 31 pg (27-31); MEAN CORPUSCULAR HGB CONC 34 % (32-36); MEAN CORPUSCULAR VOLUME 92 fL (79.0-98.0); MONOCYTES # (AUTO) 0.9 K/uL (0.0-1.0); MONOCYTES % (AUTO) 10.6 % (1.7-9.3); NEUTROPHILS # (AUTO) 5.6 K/uL (1.8-7.7); NEUTROPHILS % (AUTO) 70.1 % (40.0-70.0); PLATELET COUNT (AUTO) 197 K/uL (130-430); RED BLOOD CELL COUNT(AUTO) 2.91 MIL/uL (4.2-6.2); RED CELL DISTRIBUTION WIDTH 15.8 % (9.0-15.0)
[2022-09-22] MEDS: LOSARTAN POTASSIUM 50 MG TABLET (COZAAR) PO SCH ×2 (09:00→23:51)
[2022-09-22] MEDS: hydrALAZINE HCL 25 MG TABLET PO SCH ×3 (09:00→23:50)
[2022-09-22] MEDS ORDERED: MEROPENEM 1 GM in NS 100 ML IV SCH (09:00)
[2022-09-22] MEDS: METOPROLOL TARTRATE 25 MG TABLET PO SCH ×2 (09:00→23:53)
[2022-09-22] MEDS: ATORVASTATIN 20 MG TABLET PO SCH (09:08)
[2022-09-22] MEDS: ASPIRIN 81 MG TAB.CHEW PO SCH (09:08)
[2022-09-22] MEDS: GLIMEPIRIDE 2 MG TABLET PO SCH (09:08)
[2022-09-22] MEDS: BALSAM PERU/CASTOR OIL 56.7 GM OINT...G. TP SCH (09:12)
[2022-09-22] MEDS: APIXABAN 2.5 MG TABLET PO SCH ×2 (09:14→23:55)
[2022-09-22 09:20] LABS: ALANINE AMINOTRANSFERASE 16 U/L (12-78); ALBUMIN 2.1 g/dL (3.4-4.8); ANION GAP 12 (5-15); ASPARTATE AMINOTRANSFERASE 18 U/L (10-37); CALCIUM 8.4 mg/dL (8.4-11.0); CHLORIDE 99 mmol/L (98-107); CREATININE 3.16 mg/dL (0.55-1.30); GLUCOSE 195 mg/dL (70-99); TOTAL BILIRUBIN 0.3 mg/dL (0.0-1.0); UREA NITROGEN, BLOOD 72 mg/dL (8-21)
[2022-09-22 11:20] VITALS: BP_SYST 133
[2022-09-22] MEDS ORDERED: VANCOMYCIN HCL Non-Formulary 125 MG CAPSULE PO SCH (13:15)
[2022-09-22] MEDS: VANCOMYCIN HCL ORAL SOLUTION 125 MG/5 ML, 150 ML PO SCH ×3 (14:22→23:53)
[2022-09-22 15:43] VITALS: BP_SYST 113
[2022-09-22 20:00] VITALS: BP_SYST 135
[2022-09-22] MEDS ORDERED: HEPARIN SODIUM, PORCINE 10,000 UNITS/ 10 ML VIAL MC ONE (23:45)
[2022-09-22] MEDS: CHOLESTYRAMINE/SUCROSE 4 GM/PACKET PO SCH (23:51)
[2022-09-23] MEDS ORDERED: HEPARIN SODIUM,PORCINE 5,000 UNITS/ML VIAL ONE (00:05)
[2022-09-23 01:51] VITALS: BP_SYST 117
[2022-09-23 04:31] LABS: BASOPHILS % (AUTO) 0.5 % (0.0-2.0); EOSINOPHILS # (AUTO) 0.3 K/uL (0.0-0.4); EOSINOPHILS % (AUTO) 3.1 % (0.0-4.0); HEMATOCRIT 27.8 % (36-48); HEMOGLOBIN 9.4 g/dL (12.0-16.0); LYMPHOCYTES # (AUTO) 1.1 K/uL (1.0-5.5); LYMPHOCYTES % (AUTO) 12.4 % (20.5-51.5); MEAN CORPUSCULAR HEMOGLOBIN 31 pg (27-31); MEAN CORPUSCULAR HGB CONC 34 % (32-36); MEAN CORPUSCULAR VOLUME 91 fL (79.0-98.0); MONOCYTES # (AUTO) 0.9 K/uL (0.0-1.0); MONOCYTES % (AUTO) 9.8 % (1.7-9.3); NEUTROPHILS # (AUTO) 6.6 K/uL (1.8-7.7); NEUTROPHILS % (AUTO) 74.2 % (40.0-70.0); PLATELET COUNT (AUTO) 193 K/uL (130-430); RED BLOOD CELL COUNT(AUTO) 3.07 MIL/uL (4.2-6.2); RED CELL DISTRIBUTION WIDTH 15.7 % (9.0-15.0); WHITE BLOOD COUNT (AUTO) 8.9 K/uL (4.8-10.8)
[2022-09-23 04:46] LABS: ALANINE AMINOTRANSFERASE 17 U/L (12-78); ALBUMIN 2.2 g/dL (3.4-4.8); ANION GAP 7 (5-15); ASPARTATE AMINOTRANSFERASE 18 U/L (10-37); CALCIUM 8.1 mg/dL (8.4-11.0); CHLORIDE 101 mmol/L (98-107); CREATININE 1.54 mg/dL (0.55-1.30); GLUCOSE 223 mg/dL (70-99); PHOSPHORUS 1.6 mg/dL (2.7-4.5); TOTAL BILIRUBIN 0.3 mg/dL (0.0-1.0); UREA NITROGEN, BLOOD 35 mg/dL (8-21)
[2022-09-23] MEDS: INSULIN LISPRO SLIDING SCALE 100 UNITS/ML, 3 ML VIAL (humaLOG) SUBCUT PRN ×2 (06:12→11:29)
[2022-09-23] MEDS: LEVOTHYROXINE SODIUM 0.088 MG TABLET PO SCH (06:17)
[2022-09-23 08:00] VITALS: BP_SYST 138
[2022-09-23] MEDS ORDERED: SULFAMETHOXAZOLE/TRIMETHOPR DS 1 TABLET PO SCH (09:00)
[2022-09-23] MEDS: VANCOMYCIN HCL ORAL SOLUTION 125 MG/5 ML, 150 ML PO SCH ×4 (09:44→21:00)
[2022-09-23] MEDS: ASPIRIN 81 MG TAB.CHEW PO SCH (09:44)
[2022-09-23] MEDS: METOPROLOL TARTRATE 25 MG TABLET PO SCH (09:44)
[2022-09-23] MEDS: CHOLESTYRAMINE/SUCROSE 4 GM/PACKET PO SCH ×2 (09:44→21:00)
[2022-09-23] MEDS: LOSARTAN POTASSIUM 50 MG TABLET (COZAAR) PO SCH ×2 (09:45→23:30)
[2022-09-23] MEDS: GLIMEPIRIDE 2 MG TABLET PO SCH (09:45)
[2022-09-23] MEDS: ATORVASTATIN 20 MG TABLET PO SCH (09:45)
[2022-09-23] MEDS: hydrALAZINE HCL 25 MG TABLET PO SCH ×3 (09:46→21:00)
[2022-09-23] MEDS: BALSAM PERU/CASTOR OIL 56.7 GM OINT...G. TP SCH (09:47)
[2022-09-23] MEDS: APIXABAN 2.5 MG TABLET PO SCH ×2 (09:47→21:00)
[2022-09-23] MEDS ORDERED: MEROPENEM 500 MG in NS 50 ML IV ONE (11:00)
[2022-09-23 11:35] VITALS: BP_SYST 132
[2022-09-23 15:32] VITALS: BP_SYST 147
[2022-09-23 17:49] LABS: BILIRUBIN,URINE NEGATIVE (NEGATIVE); BLOOD, URINE 3+ (NEGATIVE); CLARITY/URINE CLOUDY (CLEAR); COLOR,URINE YELLOW (YELLOW); GLUCOSE,URINE NEGATIVE (NEGATIVE); KETONES,URINE NEGATIVE (NEGATIVE); LEUKOCYTE ESTERASE ,URINE 3+ (NEGATIVE); NITRITE, URINE NEGATIVE (NEGATIVE); PROTEIN URINE 3+ (NEGATIVE); UROBILINOGEN,URINE 0.2 (0.2-1.0)
[2022-09-23 17:56] LABS: BACTERIA,URINE MODERATE /HPF (None Seen); MUCUS,URINE None Seen /LPF (None Seen); WBC,URINE >100 /HPF (0-3)
[2022-09-23 20:00] VITALS: BP_SYST 145
[2022-09-23] MEDS ORDERED: MEROPENEM 500 MG in NS 50 ML IV SCH (21:00)
[2022-09-24 01:33] VITALS: BP_SYST 157
[2022-09-24 04:36] LABS: BASOPHILS % (AUTO) 0.4 % (0.0-2.0); EOSINOPHILS # (AUTO) 0.3 K/uL (0.0-0.4); EOSINOPHILS % (AUTO) 3.4 % (0.0-4.0); HEMATOCRIT 26.4 % (36-48); LYMPHOCYTES # (AUTO) 1.2 K/uL (1.0-5.5); LYMPHOCYTES % (AUTO) 15.1 % (20.5-51.5); MEAN CORPUSCULAR HEMOGLOBIN 31 pg (27-31); MEAN CORPUSCULAR HGB CONC 34 % (32-36); MEAN CORPUSCULAR VOLUME 91 fL (79.0-98.0); MONOCYTES # (AUTO) 0.9 K/uL (0.0-1.0); MONOCYTES % (AUTO) 11.5 % (1.7-9.3); NEUTROPHILS # (AUTO) 5.4 K/uL (1.8-7.7); NEUTROPHILS % (AUTO) 69.6 % (40.0-70.0); PLATELET COUNT (AUTO) 192 K/uL (130-430); RED CELL DISTRIBUTION WIDTH 15.8 % (9.0-15.0); WHITE BLOOD COUNT (AUTO) 7.7 K/uL (4.8-10.8)
[2022-09-24 04:47] LABS: ANION GAP 6 (5-15); CALCIUM 8.3 mg/dL (8.4-11.0); CHLORIDE 101 mmol/L (98-107); CREATININE 2.61 mg/dL (0.55-1.30); GLUCOSE 284 mg/dL (70-99); UREA NITROGEN, BLOOD 54 mg/dL (8-21)
[2022-09-24] MEDS: LEVOTHYROXINE SODIUM 0.088 MG TABLET PO SCH (07:44)
[2022-09-24] MEDS: INSULIN LISPRO SLIDING SCALE 100 UNITS/ML, 3 ML VIAL (humaLOG) SUBCUT PRN ×4 (07:49→21:02)
[2022-09-24 08:00] VITALS: BP_SYST 158
[2022-09-24] MEDS: hydrALAZINE HCL 25 MG TABLET PO SCH ×3 (09:00→20:59)
[2022-09-24] MEDS: LOSARTAN POTASSIUM 50 MG TABLET (COZAAR) PO SCH ×2 (09:00→20:58)
[2022-09-24] MEDS: METOPROLOL TARTRATE 25 MG TABLET PO SCH ×3 (09:00→20:58)
[2022-09-24] MEDS: VANCOMYCIN HCL ORAL SOLUTION 125 MG/5 ML, 150 ML PO SCH ×4 (09:09→20:59)
[2022-09-24] MEDS: GLIMEPIRIDE 2 MG TABLET PO SCH (09:09)
[2022-09-24] MEDS: CHOLESTYRAMINE/SUCROSE 4 GM/PACKET PO SCH ×2 (09:09→20:59)
[2022-09-24] MEDS: ASPIRIN 81 MG TAB.CHEW PO SCH (09:09)
[2022-09-24] MEDS: ATORVASTATIN 20 MG TABLET PO SCH (09:10)
[2022-09-24] MEDS: APIXABAN 2.5 MG TABLET PO SCH ×2 (09:11→20:59)
[2022-09-24] MEDS: BALSAM PERU/CASTOR OIL 56.7 GM OINT...G. TP SCH (09:19)
[2022-09-24 12:51] VITALS: BP_SYST 158
[2022-09-24] MEDS ORDERED: HEPARIN SODIUM,PORCINE 5,000 UNITS/ML VIAL MC ONE (15:15)
[2022-09-24 17:25] VITALS: BP_SYST 126
[2022-09-24 20:31] VITALS: BP_SYST 130
[2022-09-25 00:21] VITALS: BP_SYST 135
[2022-09-25] MEDS: INSULIN LISPRO SLIDING SCALE 100 UNITS/ML, 3 ML VIAL (humaLOG) SUBCUT PRN ×3 (06:32→21:53)
[2022-09-25] MEDS: LEVOTHYROXINE SODIUM 0.088 MG TABLET PO SCH (07:34)
[2022-09-25 08:00] VITALS: BP_SYST 143
[2022-09-25] MEDS: VANCOMYCIN HCL ORAL SOLUTION 125 MG/5 ML, 150 ML PO SCH ×4 (09:43→21:45)
[2022-09-25] MEDS: CHOLESTYRAMINE/SUCROSE 4 GM/PACKET PO SCH ×2 (09:43→21:43)
[2022-09-25] MEDS: GLIMEPIRIDE 2 MG TABLET PO SCH (09:44)
[2022-09-25] MEDS: ATORVASTATIN 20 MG TABLET PO SCH (09:44)
[2022-09-25] MEDS: ASPIRIN 81 MG TAB.CHEW PO SCH (09:44)
[2022-09-25] MEDS: APIXABAN 2.5 MG TABLET PO SCH ×2 (09:45→21:46)
[2022-09-25] MEDS: LOSARTAN POTASSIUM 50 MG TABLET (COZAAR) PO SCH ×2 (09:45→21:44)
[2022-09-25] MEDS: hydrALAZINE HCL 25 MG TABLET PO SCH ×3 (09:46→21:45)
[2022-09-25] MEDS: METOPROLOL TARTRATE 25 MG TABLET PO SCH ×2 (09:46→21:47)
[2022-09-25] MEDS: BALSAM PERU/CASTOR OIL 56.7 GM OINT...G. TP SCH (09:53)
[2022-09-25 11:16] VITALS: BP_SYST 125
[2022-09-25 15:05] VITALS: BP_SYST 115
[2022-09-25 20:00] VITALS: BP_SYST 112
[2022-09-26 01:39] VITALS: BP_SYST 113
[2022-09-26 05:19] LABS: BASOPHILS % (AUTO) 0.6 % (0.0-2.0); EOSINOPHILS # (AUTO) 0.3 K/uL (0.0-0.4); EOSINOPHILS % (AUTO) 4.1 % (0.0-4.0); HEMATOCRIT 26.8 % (36-48); LYMPHOCYTES # (AUTO) 1.3 K/uL (1.0-5.5); LYMPHOCYTES % (AUTO) 15.5 % (20.5-51.5); MEAN CORPUSCULAR HEMOGLOBIN 31 pg (27-31); MEAN CORPUSCULAR HGB CONC 34 % (32-36); MEAN CORPUSCULAR VOLUME 91 fL (79.0-98.0); MONOCYTES # (AUTO) 0.8 K/uL (0.0-1.0); NEUTROPHILS # (AUTO) 5.9 K/uL (1.8-7.7); NEUTROPHILS % (AUTO) 70.8 % (40.0-70.0); PLATELET COUNT (AUTO) 214 K/uL (130-430); RED BLOOD CELL COUNT(AUTO) 2.94 MIL/uL (4.2-6.2); RED CELL DISTRIBUTION WIDTH 15.6 % (9.0-15.0); WHITE BLOOD COUNT (AUTO) 8.4 K/uL (4.8-10.8)
[2022-09-26 05:50] LABS: ANION GAP 8 (5-15); CALCIUM 9.1 mg/dL (8.4-11.0); CHLORIDE 101 mmol/L (98-107); CREATININE 2.62 mg/dL (0.55-1.30); GLUCOSE 208 mg/dL (70-99); UREA NITROGEN, BLOOD 64 mg/dL (8-21)
[2022-09-26] MEDS: LEVOTHYROXINE SODIUM 0.088 MG TABLET PO SCH (06:24)
[2022-09-26] MEDS: INSULIN LISPRO SLIDING SCALE 100 UNITS/ML, 3 ML VIAL (humaLOG) SUBCUT PRN ×2 (06:27→11:54)
[2022-09-26 08:34] VITALS: BP_SYST 124
[2022-09-26] MEDS: hydrALAZINE HCL 25 MG TABLET PO SCH (09:00)
[2022-09-26] MEDS: METOPROLOL TARTRATE 25 MG TABLET PO SCH (09:00)
[2022-09-26] MEDS: LOSARTAN POTASSIUM 50 MG TABLET (COZAAR) PO SCH (09:00)
[2022-09-26] MEDS: CHOLESTYRAMINE/SUCROSE 4 GM/PACKET PO SCH (09:40)
[2022-09-26] MEDS: ATORVASTATIN 20 MG TABLET PO SCH (09:40)
[2022-09-26] MEDS: ASPIRIN 81 MG TAB.CHEW PO SCH (09:40)
[2022-09-26] MEDS: GLIMEPIRIDE 2 MG TABLET PO SCH (09:41)
[2022-09-26] MEDS: VANCOMYCIN HCL ORAL SOLUTION 125 MG/5 ML, 150 ML PO SCH ×2 (09:41→14:05)
[2022-09-26] MEDS: APIXABAN 2.5 MG TABLET PO SCH (09:45)
[2022-09-26] MEDS ORDERED: SULF1TAB48 PO (10:00)
[2022-09-26 11:17] VITALS: BP_SYST 119
[2022-09-26] MEDS ORDERED: HEPARIN SODIUM,PORCINE 5,000 UNITS/ML VIAL MC ONE (12:30)
[2022-09-26] MEDS: BALSAM PERU/CASTOR OIL 56.7 GM OINT...G. TP SCH (12:42)
[2022-09-26 15:56] VITALS: BP_SYST 119
[2022-09-26 16:44] VITALS: BP_SYST 129
== END 2022-09-26 16:25 | disposition home or self-care (01) | DRG 871 ==
LOC: SED 00:12 → SMU 02:59
PROVIDERS: ADMIT Specialist; ATTEND Specialist
PROC: 5A1D70Z Performance of Urinary Filtration, Intermittent, Less than 6 Hours Per Day (ICD-10-PCS; principal; 2022-09-19)
PROC: 5A1D70Z Performance of Urinary Filtration, Intermittent, Less than 6 Hours Per Day (ICD-10-PCS; 2022-09-21)
PROC: 5A1D70Z Performance of Urinary Filtration, Intermittent, Less than 6 Hours Per Day (ICD-10-PCS; 2022-09-24)
PROC: 5A1D70Z Performance of Urinary Filtration, Intermittent, Less than 6 Hours Per Day (ICD-10-PCS; 2022-09-26)
DX: A41.9 Sepsis, unspecified organism (principal); N18.6 End stage renal disease; A04.72 Enterocolitis due to Clostridium difficile, not specified as recurrent; Z68.1 Body mass index [BMI] 19.9 or less, adult; E44.0 Moderate protein-calorie malnutrition; N30.90 Cystitis, unspecified without hematuria; I10 Essential (primary) hypertension; E11.9 Type 2 diabetes mellitus without complications; B96.20 Unspecified Escherichia coli [E. coli] as the cause of diseases classified elsewhere; D63.8 Anemia in other chronic diseases classified elsewhere; E78.5 Hyperlipidemia, unspecified; R19.7 Diarrhea, unspecified
CPT/HCPCS: 36415; 76376; 80048; 80053; 81000; 83690; 83735; 84100; 84484; 85025; 87040; 87045-TC; 87046; 87070-TC; 87081; 87086; 87205-TC; 87230-TC; 89055; 90935; 90937; 93005; 96365; 96375; 97110-GP; 97112-GP; 97116-GP; 97530-GP; 99285; J0696; J1644; J2185; J2405; J7060

== ENCOUNTER 2022-10-17 13:32 | Inpatient (IN) | payer OTHER ==
[~2022-10-17] VITALS: Ht 172.7 cm; Wt 65.5 kg
[~2022-10-17 13:32] MED LIST changes: +SULF1TAB48 PO
[2022-10-17 13:39] VITALS: BP_SYST 129
[2022-10-17 14:54] LABS: BASOPHILS % (AUTO) 0.1 % (0.0-2.0); EOSINOPHILS # (AUTO) 0.1 K/uL (0.0-0.4); EOSINOPHILS % (AUTO) 0.4 % (0.0-4.0); HEMATOCRIT 30.8 % (36-48); HEMOGLOBIN 10.3 g/dL (12.0-16.0); LYMPHOCYTES # (AUTO) 0.8 K/uL (1.0-5.5); LYMPHOCYTES % (AUTO) 4.1 % (20.5-51.5); MEAN CORPUSCULAR HEMOGLOBIN 31 pg (27-31); MEAN CORPUSCULAR HGB CONC 33 % (32-36); MEAN CORPUSCULAR VOLUME 93 fL (79.0-98.0); MONOCYTES # (AUTO) 1.5 K/uL (0.0-1.0); MONOCYTES % (AUTO) 7.9 % (1.7-9.3); NEUTROPHILS # (AUTO) 16.3 K/uL (1.8-7.7); NEUTROPHILS % (AUTO) 87.5 % (40.0-70.0); PLATELET COUNT (AUTO) 269 K/uL (130-430); RED BLOOD CELL COUNT(AUTO) 3.31 MIL/uL (4.2-6.2); RED CELL DISTRIBUTION WIDTH 16.4 % (9.0-15.0); WHITE BLOOD COUNT (AUTO) 18.6 K/uL (4.8-10.8)
[2022-10-17 15:05] LABS: ANION GAP 5 (5-15); CALCIUM 8.1 mg/dL (8.4-11.0); CHLORIDE 100 mmol/L (98-107); CREATININE 1.85 mg/dL (0.55-1.30); GLUCOSE 198 mg/dL (70-99); UREA NITROGEN, BLOOD 20 mg/dL (8-21)
[2022-10-17 15:23] LABS: ALANINE AMINOTRANSFERASE 14 U/L (12-78); ALBUMIN 1.8 g/dL (3.4-4.8); ASPARTATE AMINOTRANSFERASE 21 U/L (10-37); LIPASE 36 U/L (73-393); TOTAL BILIRUBIN 0.4 mg/dL (0.0-1.0)
[2022-10-17 15:27] LABS: ACETAMINOPHEN < 1 ug/mL (1-30)
[2022-10-17] MEDS ORDERED: NS 500 ML IV ONE (15:30)
[2022-10-17] MEDS ORDERED: MEROPENEM 1 GM IVPB PREMIX 50 ML IV ONE (15:30)
[2022-10-17 15:32] LABS: BILIRUBIN,URINE 2+ (NEGATIVE); BLOOD, URINE 3+ (NEGATIVE); CLARITY/URINE TURBID (CLEAR); COLOR,URINE BROWN (YELLOW); GLUCOSE,URINE TRACE (NEGATIVE); KETONES,URINE TRACE (NEGATIVE); LEUKOCYTE ESTERASE ,URINE 3+ (NEGATIVE); NITRITE, URINE POSITIVE (NEGATIVE); PROTEIN URINE 3+ (NEGATIVE)
[2022-10-17 15:58] LABS: BACTERIA,URINE MODERATE /HPF (None Seen); RBC,URINE 50-80 /HPF (0-3); WBC,URINE >100 /HPF (0-3)
[2022-10-17 15:59] LABS: MUCUS,URINE None Seen /LPF (None Seen)
[2022-10-17 16:01] LABS: COARSE GRANULAR CASTS,URINE 0-10 /LPF (None Seen)
[2022-10-17] MEDS ORDERED: iohexoL 350 mgI/mL, 100 ML INFUS..BTL IV ONE (16:25)
[2022-10-17] MEDS ORDERED: ASPI-1393 PO (16:57)
[2022-10-17] MEDS ORDERED: CIPR250T4 PO (16:57)
[2022-10-17] MEDS ORDERED: ATOR40TA68 PO (16:57)
[2022-10-17] MEDS ORDERED: LOSA100T23 PO (16:57)
[2022-10-17] MEDS ORDERED: GLIM2TAB PO (16:57)
[2022-10-17] MEDS ORDERED: DOCU-144 PO (16:57)
[2022-10-17] MEDS ORDERED: HYDR100T25 PO (16:57)
[2022-10-17] MEDS ORDERED: LOSA25TA3 PO (16:57)
[2022-10-17] MEDS ORDERED: D5W 1,000 ML IV PRN (17:15)
[2022-10-17] MEDS ORDERED: ONDANSETRON HCL 4 MG/2 ML VIAL IVP PRN (17:15)
[2022-10-17] MEDS ORDERED: GLUCOSE (DEXTROSE) ORAL GEL -Adults PO PRN (17:15)
[2022-10-17] MEDS ORDERED: INSULIN GLARGINE 100 UNITS/ML, 10 ML VIAL SUBCUT ONE (17:15)
[2022-10-17] MEDS ORDERED: DEXTROSE 50% JECT 50 ML DISP.SYRIN IVP PRN (17:15)
[2022-10-17] MEDS ORDERED: ASPIRIN 81 MG TAB.CHEW PO ONE (17:15)
[2022-10-17] MEDS ORDERED: MORPHINE 2 MG/ML INJ. SYRINGE IVP PRN (17:15)
[2022-10-17] MEDS ORDERED: HYDROcodone/ACETAMIN 10-325 MG TAB PO PRN (17:15)
[2022-10-17] MEDS: APIXABAN 2.5 MG TABLET PO SCH (21:26)
[2022-10-17] MEDS: METOPROLOL TARTRATE 25 MG TABLET PO SCH (21:27)
[2022-10-17] MEDS: SEVELAMER CARBONATE 800 MG TABLET PO SCH (21:28)
[2022-10-17] MEDS ORDERED: LOPERAMIDE HCL 2 MG CAPSULE PO ONE (22:15)
[2022-10-17 23:51] VITALS: BP_SYST 107
[2022-10-18] VITALS: BP_SYST 119
[2022-10-18 05:42] LABS: BASOPHILS % (AUTO) 0.1 % (0.0-2.0); EOSINOPHILS % (AUTO) 0.2 % (0.0-4.0); HEMATOCRIT 32.3 % (36-48); HEMOGLOBIN 10.6 g/dL (12.0-16.0); LYMPHOCYTES # (AUTO) 0.8 K/uL (1.0-5.5); LYMPHOCYTES % (AUTO) 3.6 % (20.5-51.5); MEAN CORPUSCULAR HEMOGLOBIN 31 pg (27-31); MEAN CORPUSCULAR HGB CONC 33 % (32-36); MEAN CORPUSCULAR VOLUME 94 fL (79.0-98.0); MONOCYTES # (AUTO) 1.1 K/uL (0.0-1.0); NEUTROPHILS # (AUTO) 20.3 K/uL (1.8-7.7); NEUTROPHILS % (AUTO) 91.1 % (40.0-70.0); PLATELET COUNT (AUTO) 283 K/uL (130-430); RED BLOOD CELL COUNT(AUTO) 3.45 MIL/uL (4.2-6.2); RED CELL DISTRIBUTION WIDTH 16.6 % (9.0-15.0); WHITE BLOOD COUNT (AUTO) 22.3 K/uL (4.8-10.8)
[2022-10-18] MEDS: INSULIN REGULAR, HUMAN 100 UNITS/ML, 3 ML VIAL (humuLIN R) SUBCUT PRN ×4 (06:18→20:42)
[2022-10-18 06:21] LABS: ALANINE AMINOTRANSFERASE 12 U/L (12-78); ALBUMIN 1.6 g/dL (3.4-4.8); ANION GAP 9 (5-15); ASPARTATE AMINOTRANSFERASE 19 U/L (10-37); CALCIUM 7.8 mg/dL (8.4-11.0); CHLORIDE 97 mmol/L (98-107); CREATININE 2.49 mg/dL (0.55-1.30); GLUCOSE 278 mg/dL (70-99); TOTAL BILIRUBIN 0.3 mg/dL (0.0-1.0); UREA NITROGEN, BLOOD 32 mg/dL (8-21)
[2022-10-18] MEDS: SEVELAMER CARBONATE 800 MG TABLET PO SCH ×3 (08:09→17:23)
[2022-10-18] MEDS: ASPIRIN 81 MG TAB.CHEW PO SCH (08:09)
[2022-10-18] MEDS: METOPROLOL TARTRATE 25 MG TABLET PO SCH ×2 (08:11→20:41)
[2022-10-18] MEDS: APIXABAN 2.5 MG TABLET PO SCH ×2 (08:11→20:39)
[2022-10-18 08:42] VITALS: BP_SYST 93
[2022-10-18] MEDS ORDERED: INSULIN GLARGINE 100 UNITS/ML, 10 ML VIAL SUBCUT SCH (09:00)
[2022-10-18] MEDS ORDERED: HONEY WOUND DRESSING 1 EACH TP SCH (09:00)
[2022-10-18] MEDS ORDERED: POTASSIUM CHLORIDE 20 MEQ TAB.PRT.SR PO ONE (09:45)
[2022-10-18 11:21] VITALS: BP_SYST 122
[2022-10-18] MEDS ORDERED: MEROPENEM 500 MG in NS 50 ML IV SCH (15:00)
[2022-10-18 17:11] VITALS: BP_SYST 90
[2022-10-18 20:00] VITALS: BP_SYST 84
[2022-10-19] VITALS: BP_SYST 82
[2022-10-19 07:15] VITALS: BP_SYST 107
[2022-10-19] MEDS ORDERED: NACL 0.9% 1,000 ML IV ONE (08:30)
[2022-10-19] MEDS ORDERED: NOREPINEPHRINE BITARTRATE 4 MG in D5W 246 ML IV PRN (08:30)
[2022-10-19 08:40] LABS: ALANINE AMINOTRANSFERASE 839 U/L (12-78); ALBUMIN 1.6 g/dL (3.4-4.8); ANION GAP 21 (5-15); ASPARTATE AMINOTRANSFERASE 1872 U/L (10-37); CALCIUM 8.7 mg/dL (8.4-11.0); CHLORIDE 95 mmol/L (98-107); CREATININE 3.77 mg/dL (0.55-1.30); GLUCOSE 121 mg/dL (70-99); HEMATOCRIT 37.2 % (36-48); HEMOGLOBIN 11.9 g/dL (12.0-16.0); MEAN CORPUSCULAR HEMOGLOBIN 30 pg (27-31); MEAN CORPUSCULAR HGB CONC 32 % (32-36); MEAN CORPUSCULAR VOLUME 95 fL (79.0-98.0); PLATELET COUNT (AUTO) 248 K/uL (130-430); RED BLOOD CELL COUNT(AUTO) 3.91 MIL/uL (4.2-6.2); RED CELL DISTRIBUTION WIDTH 16.8 % (9.0-15.0); TOTAL BILIRUBIN 0.4 mg/dL (0.0-1.0); UREA NITROGEN, BLOOD 57 mg/dL (8-21)
[2022-10-19 08:54] LABS: WHITE BLOOD COUNT (AUTO) 48.3 K/uL (4.8-10.8)
[2022-10-19] MEDS ORDERED: HONEY WOUND DRESSING 1 EACH TP SCH (09:00)
[2022-10-19] MEDS ORDERED: INSULIN GLARGINE 100 UNITS/ML, 10 ML VIAL SUBCUT SCH (09:00)
[2022-10-19] MEDS ORDERED: BALSAM PERU/CASTOR OIL 56.7 GM OINT...G. TP SCH (09:00)
[2022-10-19 09:32] LABS: BAND % (MANUAL) 28 % (0-6); BASOPHILS % (MANUAL) 0 % (0-2); EOSINOPHILS % (MANUAL) 0 % (0-7); LYMPHOCYTES % (MANUAL) 8 % (20-46); MONOCYTES % (MANUAL) 8 % (0-11)
[2022-10-19 12:00] VITALS: BP_SYST 54
[2022-10-19] MEDS ORDERED: PHENYLEPHRINE HCL 100 MG in NS 240 ML IV PRN (12:45)
[2022-10-19] MEDS ORDERED: VANCOMYCIN HCL ORAL SOLUTION 125 MG/5 ML, 150 ML PO SCH (13:00)
[2022-10-19] MEDS ORDERED: metroNIDAZOLE 250 mg/NS 50 ML IV SCH (14:00)
[2022-10-19] MEDS: ASPIRIN 81 MG TAB.CHEW PO SCH (16:24)
== END 2022-10-19 12:50 | DRG 871 ==
LOC: SED 13:32 → STU 16:21 → SIC 10-19 09:50
PROVIDERS: ADMIT Family Medicine; ATTEND Family Medicine
DX: A41.9 Sepsis, unspecified organism (principal); E43 Unspecified severe protein-calorie malnutrition; N18.6 End stage renal disease; R65.21 Severe sepsis with septic shock; G92.9 Unspecified toxic encephalopathy; J96.00 Acute respiratory failure, unspecified whether with hypoxia or hypercapnia; K72.00 Acute and subacute hepatic failure without coma; I12.0 Hypertensive chronic kidney disease with stage 5 chronic kidney disease or end stage renal disease; K52.9 Noninfective gastroenteritis and colitis, unspecified; E11.22 Type 2 diabetes mellitus with diabetic chronic kidney disease; L89.150 Pressure ulcer of sacral region, unstageable; D63.8 Anemia in other chronic diseases classified elsewhere; E78.5 Hyperlipidemia, unspecified; I46.9 Cardiac arrest, cause unspecified; Z79.82 Long term (current) use of aspirin; Z79.899 Other long term (current) drug therapy; Z99.2 Dependence on renal dialysis; Z86.73 Personal history of transient ischemic attack (TIA), and cerebral infarction without residual deficits; Z90.49 Acquired absence of other specified parts of digestive tract; Z68.22 Body mass index [BMI] 22.0-22.9, adult
CPT/HCPCS: 36415; 70450-TC; 71045; 71275; 74018; 76376; 80053; 81000; 82140; 83037; 83605; 83690; 83880; 84484; 85007; 85025; 85027; 85379; 87040; 87081; 87086; 87230-TC; 92950; 93005; 93306; 96361; 96365; 99291; G0378; G0480; G0481; J1815; J2185; J2370; J3490; J7050; J7060; Q9967